=== PATIENT | male | born 2000 | race Caucasian/White ===

== ENCOUNTER 2022-03-30 10:12 | Outpatient (REF) | payer OTHER, SELFPAY ==
[2022-03-30 11:00] LABS: COVID-19 Test Negative (Negative); IDNOW Serial# 16C4AD1C
== END 2022-03-30 10:13 | disposition home or self-care (01) ==
LOC: HO.LAB 10:12
PROVIDERS: Absent Provider Internal Medicine; Visit Provider Internal Medicine
DX: Z20.822 Contact with and (suspected) exposure to COVID-19 (principal)
CPT/HCPCS: 87635

== ENCOUNTER 2023-06-11 07:27 | Emergency (ER) | payer OTHER, SELFPAY ==
--- NOTE | ~2023-06-11 | XR_ITS ---
EXAMINATION: XR CHEST CLINICAL INFORMATION: Stabbing chest pain COMPARISON: None available. TECHNIQUE: Frontal view of the chest was obtained. FINDINGS: No significant abnormality is noted involving the heart, lungs, mediastinum, bony thorax or soft tissues. XR/XR chest 1V IMPRESSION: Unremarkable examination.
[2023-06-11 07:31] VITALS: BP 137/71; PULSE 97; RESP 20; TEMP 36.1; O2SAT 97; BMI 26.9
--- NOTE | 2023-06-11 07:42 | PC.NURSE ---
Patient reports not feeling good starting on friday evening. States has body aches, headache, cough, and chest pain from coughing. Reports took a home covid test that he believes is positive. Reports nasal congestion and sore throat.
[2023-06-11 07:53] VITALS: O2SAT 97
--- NOTE | 2023-06-11 07:57 | ED.URI ---
HPI - URI/Sore Throat General Chief Complaint: Upper Respiratory Symptoms Stated Complaint: Congestion, chest pain Time Seen by Provider: 06/11/23 07:35 History of Present Illness HPI Narrative: Patient is a 22-year-old male presents today with having coughing congestion upper respiratory symptoms. Positive generalized malaise. Cough nonproductive. Patient vaccinated for COVID. Related Data Allergies Allergy/AdvReac Type Severity Reaction Status Date / Time No Known Allergies Allergy Verified 06/11/23 07:35 Review of Systems Review of Systems: Positive coughing congestion upper respiratory symptoms PMFSH Past Medical History Attestation statement: The following information was validated with the patient. Social History Social History Advance Directives: No Advance Directives Information Provided: No Physical Exam Vital Signs: Vital Signs: Last Vital Signs Temp 97.0 F 06/11/23 07:31 Pulse 97 06/11/23 07:31 Resp 20 06/11/23 07:31 BP 137/71 06/11/23 07:31 Pulse Ox 97 06/11/23 07:53 O2 Del Method Room Air 06/11/23 07:53 BMI result Body Mass Index 26.9 Appearance: Alert. Oriented X3. No acute distress. Eyes: Pupils equal, round and reactive to light. ENT: Pharynx normal. Neck: Normal inspection. Neck supple. No lymph nodes noted. No crepitus CVS: Normal heart rate and rhythm. Pulses normal. Normal S1 and S2 Respiratory: No respiratory distress. Breath sounds normal. No Wheezing. No rales Abdomen: Soft and nontender. No rigidity. No distention. good BS x4 Skin: Skin warm and dry. Normal skin color. Normal skin turgor. Extremities: No lower extremity edema. Neurovascular intact to all extremities. No Lacerations. No Rash Neuro: Oriented X 3. No motor deficit. No sensory deficit. Moving all extermities. No slurred speech Medical Decision Making Medical Decision Making MDM Narrative: Well-appearing O2 sat is normal at 98% on room air. Lungs are clear patient in no respiratory distress. He is already vaccinated for COVID. Awaiting viral test results. In stable condition. Patient's RSV come back positive. Given patient's O2 sat is normal no distress. Will have patient follow-up on an outpatient basis. Symptomatic support only. In stable condition. Differential Diagnosis Differential Diagnoses: The differential diagnosis associated with the presentation includes Upper respiratory infection, pneumonia Admission/Observation Consideration of admission/observation: Escalation of care including admission/observation considered No need for admission as patient's O2 sats normal lungs are clear of well. Lab Data Labs: Lab Results 06/11/23 Range/Units 07:41 Influenza Type A (PCR) NEGATIVE (Negative) Influenza Type B (PCR) NEGATIVE (Negative) RSV RNA Qual (PCR) POSITIVE A (Negative) SARS-CoV-2 RNA (RT-PCR) NEGATIVE (Negative) Independent Interpretation I performed an independent interpretation of an: Plain X-Ray Interpretation: X-ray grossly negative Radiology Impression Discussion of test interpretation with radiology: I have reviewed the radiologist's reading. Prescription Management I considered prescription management with: Antibiotic No need for antibiotics Discharge Plan Discharge Clinical Impression: Bronchiolitis Patient Disposition: Home, Self-Care Instructions: Respiratory Syncytial Virus (ED) Referrals: Marisol Graf [Primary Care Provider] - 06/13/23
[2023-06-11 08:23] LABS: Influenza A PCR NEGATIVE (Negative); Influenza B PCR NEGATIVE (Negative); Resp Syncy Virus RNA Qual PCR POSITIVE (Negative); SARS COV2 PCR INHOUSE NEGATIVE (Negative)
== END 2023-06-11 09:27 | disposition home or self-care (01) ==
PROVIDERS: Emergency Provider Emergency Medicine Emergency Medical Services
DX: J21.9 Acute bronchiolitis, unspecified (principal); R50.9 Fever, unspecified; R07.89 Other chest pain; Z20.822 Contact with and (suspected) exposure to COVID-19; Z20.828 Contact with and (suspected) exposure to other viral communicable diseases
CPT/HCPCS: 0241U; 71045; 99283; 99284

== ENCOUNTER 2023-06-12 07:49 | Outpatient (AMB) | payer OTHER, SELFPAY ==
[2023-06-12 08:01] VITALS: BP 128/76; PULSE 71; O2SAT 98; BMI 26.9
--- NOTE | 2023-06-12 08:01 | A.OFFPC_ITS ---
Vital Signs 06/12/23 08:01 Height 6 ft Weight 198 lb BMI 26.9 BP 128/76 Blood Pressure Location Lt brachial Position Sitting Pulse 71 Pulse Source Pulse Oximeter Pulse Oximetry (%) 98 Oxygen Delivery Method Room Air Intake Visit Reasons: NPV/phy Allergies amoxicillin Allergy (Severe, Verified 06/12/23 08:13) Hives Penicillins Allergy (Severe, Verified 06/12/23 08:13) Hives Medication List - Last Reconciled 06/12/23 by KALIN Pettit No Known Home Meds Tobacco use date assessed: 06/12/23 Dental Screening Dental Screen Date: 06/12/23 Did you have a dental visit in the last 12 months?: Yes Did you have a dental problem in the last 6 months where you did not have access to dental care?: No Was dental information given to patient?: Patient has dentist HPI HPI Comments History of Present Illness Details 22-year-old male new patient presents to [facility] for physical exam. Past medical history significant for anxiety, depression. Review of the notes, patient was seen at [facility] yesterday as he has been experiencing cough and had stabbing chast pain related to this, sought care for CXR. CXR unremarkable. Patient was found to be + for RSV. Patient denies CP,sob. Previous patient of [facility] primary care. Eye exam: Recommended Dentist: Follows regularly. Flu declined, Patient states he will verify when his last TDAP was. [facility] Medical History (Updated 06/12/23 @ 08:14 by KALIN Pettit) Anxiety and depression Family History (Updated 06/12/23 @ 08:17 by KALIN Pettit) Mother Skin cancer Father Obstructive sleep apnea Hypertension Maternal Grandfather Myocardial infarction Social History (Updated 06/12/23 @ 08:18 by KALIN Pettit) Housing: House Alcohol intake: current Alcohol intake frequency: a few times a month Patient Tobacco Use Status: Former Tobacco user Tobacco use type: Cigarette e-Cigarette/Vaping Use: Former Use Date or number of years quit: February 2023 Second Hand Smoke Exposure: Yes Substance Use Type: Marijuana Current occupational status: employed Cognitive needs: No Hearing needs: No Vision needs: No Questionnaire PHQ-9 Over the last 2 weeks, how often have you been bothered by any of the following problems? 1. Little interest or pleasure in doing things: not at all 2. Feeling down, depressed, or hopeless: not at all 3. Trouble falling or staying asleep, or sleeping too much: not at all 4. Feeling tired or having little energy: not at all 5. Poor appetite or overeating: not at all 6. Feeling bad about yourself - or that you are a failure or have let yourself or your family down: not at all 7. Trouble concentrating on things, such as reading the newspaper or watching television: not at all 8. Moving or speaking so slowly that other people could have noticed. Or the opposite - being so fidgety or restless that you have been moving around a lot more than usual: not at all 9. Thoughts that you would be better off or of hurting yourself in some way: not at all Total score: 0 Depression Screening Interpretation: Negative Depression Screening Done: Yes [id number] - PHQ-9 Billing: Yes Source: Developed by Drs. Be Siddiqui, Skylar Robbins, Masoud Purvis and colleagues, with an educational cata from [employer]. Thrive Questionnaire Date Thrive assessed: 06/12/23 I am a: Patient What is your living situation today?: I have a steady place to live Within the past 12 months, did the food you bought not last and you didn't have the money to get more?: Never true Within the past 12 months, did you worry whether your food would run out before you got money to buy more?: Never true Do you have trouble paying for medicines?: No Do you have trouble getting transportation to medical appointments?: No Do you have trouble paying your heating and electricity bill?: No Do you have trouble taking care of your child, family member or friend?: No Do you have trouble with day-to-day activities such as bathing, preparing meals, shopping, managing finances, etc.?: No Are you currently unemployed and looking for a job?: No Are you interested in more education?: No Currently or been in a relationship where the following occur: no concerns reported AUDIT C Alcohol Use Questionnaire (AUDIT-C) 1. How often do you have a drink containing alcohol?: 2-4 times a month 2. How many drinks containing alcohol do you have on a typical day when you are drinking?: 3 or 4 3. How often do you have six or more drinks on one occasion?: Never Total Score: 3 JUAN-7 AMB Questionnaire JUAN-7 Date JUAN - 7 assessed: 06/12/23 Feeling nervous, anxious, or on edge: 0 = Not at all Not being able to stop or control worryin = Not at all Worrying too much about different things: 0 = Not at all Trouble relaxin = Not at all Being so restless that it is hard to sit still: 0 = Not at all Becoming easily annoyed or irritable: 0 = Not at all Feeling afraid as if something awful might happen: 0 = Not at all Total JUAN-7 score (0-4 normal; 5-9 mild; 10-14 moderate; 15-21 severe): 0 Source: Developed by Drs. Be Siddiqui, Skylar Robbins, Masoud Purvis and colleagues, with an educational cata from [employer]. JUAN-7 Assessment Billing JUAN-7 Assessment Tool: JUAN-7 Assessment 41673 Review of Systems Const Denies chills, Denies fatigue, Denies fever(s) and Denies poor appetite Eyes Denies no additional complaints ENT Reports Normal hearing present Card Denies chest pain, Denies syncope, Denies rapid heart rate and Denies dyspnea Resp Denies cough and Denies dyspnea GI Denies change in stool character, Denies constipation, Denies diarrhea, Denies nausea and Denies vomiting Denies dysuria, Denies urinary frequency and Denies urinary urgency Neuro Reports Normal hearing present, Denies confusion and Denies syncope Psych Denies confusion Endo Denies fatigue Physical exam (Primary Care) Vital Signs: Last Vital Signs Pulse 71 06/12/23 08:01 BP 128/76 06/12/23 08:01 Pulse Ox 98 06/12/23 08:01 Oxygen Delivery Method Room Air 06/12/23 08:01 BMI result Body Mass Index 26.9 Tobacco/Smoking Status: Tobacco use Status Tobacco use date assessed 06/12/23 06/12/23 08:09 Patient Tobacco Use Status Former Tobacco user 06/12/23 08:18 Tobacco use type Cigarette 06/12/23 08:18 e-Cigarette/Vaping Use Former Use 11/16/23 08:18 PHQ-9: PHQ-9 Score PHQ-9: Total score 0 06/12/23 08:37 Depression Screening Interpretation: Negative Thrive Assessment: Date of Thrive Assessment Date Thrive assessed 06/12/23 06/12/23 08:09 Currently or been in a relationship where the following occur: no concerns reported Const General: No confusion Orientation/consciousness: No confusion HENMT Head: Yes normocephalic and Yes atraumatic Ears: external ears normal and TM's normal bilaterally General nose exam: Normal external nose present and Normal nasal mucous membranes and turbinates present Face and sinus: Yes normal facial exam and Yes sinuses nontender Mouth: moist mucous membranes Throat: Yes tonsils normal Eyes Conjunctivae: conjunctivae normal Sclerae: sclerae normal Pupils: Equal, round and reactive pupils present and Pupils normal by confrontation EOM: EOMs intact bilaterally Direct Ophthalmoscopy: normal light reflex Neck Neck: Yes no lymphadenopathy and Yes supple Thyroid: Thyroid normal Chest Chest palpation & inspection: normal inspection of the chest Resp Effort & Inspection: normal respiratory effort Auscultation: clear to auscultation bilaterally, no crackles, no rhonchi and no wheezes Cardio Rate: regular rate Rhythm: regular rhythm Peripheral pulses: radial pulses present and dorsalis pedis present GI Inspection: Yes normal to inspection Palpation (GI): Soft to palpation, nontender and No hepatosplenomegaly present Auscultation: normoactive bowel sounds Skin General skin exam: no rashes or lesions noted Neuro General: No confusion Cranial nerves: Yes Equal, round and reactive pupils present and Yes Normal hearing present Cognition (Neuro): normal cognition Gait exam (Neuro): Normal gait present Motor exam (neuro): 5/5 motor strength present throughout Deep tendon reflexes (DTR's): Right brachioradialis reflex intensity grade: 2+, Left brachioradialis reflex intensity grade: 2+, Right patellar reflex intensity grade: 2+ and Left patellar reflex intensity grade: 2+ Extrem General: No edema Assessment and Plan Assessment & Plan (1) Physical exam, annual: Code(s): Z00.00 - Encounter for general adult medical examination without abnormal findings Plan: Follow up in 1 year. (2) RSV infection: Code(s): B33.8 - Other specified viral diseases Plan: Patient advise can take OTC medicine as needed for cough. Signs and symptoms reviewed with patient when to follow up or seek emergency medical attention. Patient states was given work note from ER and is off until next week. Plan Follow up in 1 year or sooner if needed. Orders: Orders Comprehensive [place]. Panel Fast Today Z13.1 - Encounter for screening for diabetes mellitus Complete Blood Count Auto Diff Today Z13.0 - Encounter for screening for diseases of the blood and blood-forming organs and certain disorders involving the immune mechanism TSH reflex Free T4 Today Z13.29 - Encounter for screening for other suspected endocrine disorder Lipid Panel Today Z13.220 - Encounter for screening for lipoid disorders Coding Level of Care Code New Pt Prev Care 18-39yr([id number] Diagnoses Physical exam, annual Z00.00 RSV infection B33.8 Additional Codes JUAN-7 Assessment Billing - JUAN-7 Assessment Tool: JUAN-7 Assessment 54154 ([id number])
== END 2023-06-12 08:32 | disposition home or self-care (01) ==
PROVIDERS: Visit Provider Nurse Practitioner Family
DX: Z00.00 Encounter for general adult medical examination without abnormal findings (principal); B33.8 Other specified viral diseases
CPT/HCPCS: 99385

== ENCOUNTER 2023-07-24 08:52 | Outpatient (REF) | payer OTHER, SELFPAY ==
[2023-07-24 09:47] LABS: Influenza A PCR POSITIVE (Negative); Influenza B PCR NEGATIVE (Negative); Resp Syncy Virus RNA Qual PCR NEGATIVE (Negative); SARS COV2 PCR INHOUSE NEGATIVE (Negative)
== END 2023-07-24 08:53 | disposition home or self-care (01) ==
LOC: HO.LAB 08:52
PROVIDERS: Visit Provider Physician Assistant
DX: Z11.52 Encounter for screening for COVID-19 (principal); Z20.822 Contact with and (suspected) exposure to COVID-19; B34.9 Viral infection, unspecified
CPT/HCPCS: 0241U

== ENCOUNTER 2023-10-02 07:26 | Observation (INO) | payer OTHER, SELFPAY ==
[2023-10-02] VITALS (13 sets, daily range): BP systolic 101–132; BP diastolic 48–80; PULSE 100–161; RESP 15–25; TEMP 36.8–37.1; O2SAT 90–97; BMI 26.9
--- NOTE | ~2023-10-02 | XR_ITS ---
EXAMINATION: XR CHEST CLINICAL INFORMATION: SOB (shortness of breath) COMPARISON: Chest 06/11/2023 TECHNIQUE: 2 views of the chest were obtained. 8:51 AM FINDINGS: No significant abnormality is noted involving the heart, lungs, mediastinum, bony thorax or soft tissues. XR/XR chest 2V IMPRESSION: No acute cardiopulmonary disease.
--- NOTE | ~2023-10-02 | CT_ITS ---
EXAMINATION: CT CHEST WITHOUT CONTRAST CLINICAL INFORMATION: Shortness of breath. COMPARISON: None available. TECHNIQUE: Multidetector volumetric CT imaging of the chest was done. Axial MIP volume rendering provided. Sagittal and coronal reformatted images were obtained. This CT examination was performed using dose optimization techniques as appropriate, variously including the following: *Automated exposure control *Adjustment of mA and/or kV according to patient size (this includes techniques or standardized protocols for targeted exams where dose is matched to indication/reason for exam; i.e. extremities or head) *Use of iterative reconstruction technique DLP: 309 mGy-cm FINDINGS: LUNGS: 4 mm nodule left lower lobe on image 423 of series 5. No focal consolidation. Central airways are patent. MEDIASTINUM: No bulky axillary, hilar or mediastinal lymphadenopathy. Great vessels are of normal caliber. Heart size is normal. No pericardial effusion. CORONARY ARTERY CALCIFICATION: None visualized on this study. PLEURA: No pleural effusion. UPPER ABDOMEN: Hepatic steatosis. No adrenal mass. OSSEOUS STRUCTURES: No destructive bone lesions. CT/CT chest wo IV con IMPRESSION: 4 mm left lower lobe pulmonary nodule. Follow-up chest CT in 12 months may be considered. Hepatic steatosis.
--- NOTE | 2023-10-02 07:28 | ECG_ITS ---
Test Reason : CP Blood Pressure : / mmHG Vent. Rate : 098 BPM Atrial Rate : 098 BPM P-R Int : 124 ms QRS Dur : 078 ms QT Int : 338 ms P-R-T Axes : 062 069 059 degrees QTc Int : 431 ms Normal sinus rhythm Normal ECG No previous ECGs available Referred By: Generic ED Physician Electronically Signed By:Edwin Hodges
--- NOTE | 2023-10-02 07:44 | ED_ITS ---
HPI - General Adult General Chief complaint: Upper Respiratory Symptoms Stated complaint: chest pain Time Seen by Provider: 10/02/23 07:44 Source: patient Mode of arrival: ambulatory Limitations: no limitations History of Present Illness HPI narrative: 22-year-old male presents to the emergency department with complaints of shortness of breath, cough, chest pain, hot flashes ongoing since Friday however rapidly worsening today. Patient reports he is unable to take a deep breath. He tells me on Friday he had 1 episode of nausea and vomiting however that has gone away. Patient reports his chest discomfort is in the substernal region and radiates to his right upper extremity and into the shoulder. He tells me that his shortness of breath is so severe he is unable to take a deep breath in. Patient does not smoke cigarettes. He does however vape. Patient denies fevers, chills, nausea, vomiting, abdominal pain, changes in urination. No history of PE or DVT. No recent long travel. No history of malignancy. Related Data Home Medications Medication Instructions Recorded Confirmed No Known Home Meds 06/12/23 06/12/23 Allergies Allergy/AdvReac Type Severity Reaction Status Date / Time amoxicillin Allergy Severe Hives Verified 06/12/23 08:13 Penicillins Allergy Severe Hives Verified 06/12/23 08:13 Review of Systems 2 Review of Systems: Yes all other systems are reviewed and are negative PMFSH Past Medical History Attestation statement: The following information was validated with the patient. Source: old records reviewed and nursing notes reviewed Medical History Anxiety and depression Family History Family History Mother Skin cancer Father Obstructive sleep apnea Hypertension Maternal Grandfather Myocardial infarction Social History Social History Housing: House Alcohol intake: current Alcohol intake frequency: holidays/special occasions only Patient Tobacco Use Status: Former Tobacco user Tobacco use type: Cigarette Smoked in Last 30 Days: Yes e-Cigarette/Vaping Use: Former Use Date or number of years quit: February 2023 Second Hand Smoke Exposure: Yes Use of substances other than those prescribed or required for medical reasons: Yes Substance Use Type: Marijuana Advance Directives: No Current occupational status: employed Cognitive needs: No Hearing needs: No Vision needs: No Physical Exam ED Vital Signs: Vital Signs - 24 hr 10/02/23 07:37 10/02/23 08:01 10/02/23 08:04 Temperature 98.8 F 98.6 F Pulse Rate 105 H 104 H 105 H Respiratory Rate 24 H 16 25 H Blood Pressure 127/70 129/80 Pulse Oximetry 92 93 Oxygen Delivery Method Room Air Room Air 10/02/23 08:09 10/02/23 08:36 10/02/23 09:15 Temperature Pulse Rate 116 H Respiratory Rate 15 Blood Pressure Pulse Oximetry 90 L 93 Oxygen Delivery Method Room Air Room Air 10/02/23 09:27 10/02/23 09:53 10/02/23 12:15 Temperature 98.8 F Pulse Rate 160 H 161 H 119 H Respiratory Rate 16 16 18 Blood Pressure 127/68 119/62 Pulse Oximetry 94 94 97 Oxygen Delivery Method Room Air Room Air Room Air BMI result Body Mass Index 26.9 vss Appearance: Alert.? Oriented X3.? No acute distress.? Head: Normocephalic, atraumatic, no step-offs or deformities Eyes: Pupils equal, round and reactive to light.? Neck: Normal inspection.? Neck supple.? CVS: Normal heart rate and rhythm.? Pulses normal.? Respiratory: No respiratory distress.? With significant wheezing throughout on expiration. Abdomen: Soft and nontender.? Skin: Skin warm and dry.? Normal skin color.? Normal skin turgor.? Extremities: No lower extremity edema.? No calf ttp. 5/5 strength to bilateral upper and lower extremities Neuro: Oriented X 3.? No motor deficit.? No sensory deficit. CN 2-12 intact Course Reevaluation(s) Reevaluation #1: Patient 90% w/ ambulation w/ evident labored breathing. Time: 08:00 Reevaluation #2: CBC with leukocytosis 11.4. Likely secondary to viral illness. Chemistry no acute findings needing intervention. Bili 1.8 likely baseline vs viral. Trop negative, ekg non ischemic. Dimer negative. Patient + for entero/rhino virus consistent with patient's symptoms. CXR no acute findings. Chest CT pending. Breathsounds improved however still wheezing 92% on RA still. Time: 12:43 Reevaluation #3: Patient's heart rate 130s to 140. Plan at this time hospital admission. Time: 13:16 Medications Administered Discontinued Medications Generic Name Dose Route Start Last Admin Trade Name Shine PRN Reason Stop Dose Admin Albuterol Sulfate 5 mg/ 7.5 mg 10/02/23 09:05 10/02/23 09:14 Albuterol Sulfate 2.5 mg INHALE 10/02/23 09:06 7.5 mg ONCE ONE Administration Albuterol Sulfate 7.5 mg/ 0 mg 10/02/23 07:56 10/02/23 08:02 Albuterol/Ipratropium 3 ml INHALE 10/02/23 07:57 2.5 each ONCE ONE Administration Magnesium Sulfate 2 gm in 50 mls @ 25 mls/hr 10/02/23 07:47 10/02/23 10:00 Magnesium Sulfate/H2o IV 10/02/23 09:46 Infused ONCE ONE Infusion Lorazepam 0.5 mg 10/02/23 09:43 10/02/23 09:51 Lorazepam 2 Mg/Ml Vial IVPUSH 10/02/23 09:44 0.5 mg STAT STA Administration Methylprednisolone Sodium Succinate 125 mg 10/02/23 07:47 10/02/23 07:58 Methylprednisolone Sod Succ 125 Mg/2 Ml Vial IVPUSH 10/02/23 07:48 125 mg ONCE ONE Administration Medical Decision Making Medical Decision Making [facility] Narrative: 22-year-old male presents with shortness of breath, chest discomfort fatigue, malaise and cough. Physical exam significant expiratory wheezing bilaterally. History and physical exam concerning for possible viral illness versus asthma. Unlikely pneumonia, PE, ACS, dissection. No signs of acute respiratory distress at this time. Plan will obtain basic labs, imaging, viral testing. Bronch protocol initiated. Will give magnesium and Solu-Medrol. Differential Diagnosis Differential Diagnoses: The differential diagnosis associated with the presentation includes History and physical exam concerning for possible viral illness versus asthma. Unlikely pneumonia, PE, ACS, dissection. No signs of acute respiratory distress at this time. Admission/Observation Consideration of admission/observation: Escalation of care including admission/observation considered possible Lab Data [facility] Lab Attestation statement: I reviewed the patient's lab results. 10/02/23 07:59 10/02/23 07:59 Labs: Lab Results 10/02/23 10/02/23 10/02/23 Range/Units 07:42 07:59 08:22 WBC 11.4 H (4.8-10.8) X10*3/uL RBC 5.31 (4.60-5.80) X10*6/uL Hgb 16.2 (14.0-18.0) g/dl Hct 44.4 (42.0-52.0) % MCV 83.6 (80.0-98.0) fL MCH 30.5 (27.0-33.0) pg MCHC 36.5 H (31.0-36.0) g/dl RDW 11.6 (11.0-16.0) % Plt Count 204 (160-400) X10*3/uL MPV 10.1 (9.4-12.4) fL Immature Gran % (Auto) 0.4 (0.0-0.4) % Neut % (Auto) 71.1 (45-73) % Lymph % (Auto) 13.5 L (20-40) % Cole % (Auto) 10.9 (2-11) % Eos % (Auto) 3.8 (0-4) % Baso % (Auto) 0.3 (0-2) % Lymph # (Auto) 1.5 (1.2-4.9) X10*3/uL Cole # (Auto) 1.2 (0.1-1.2) X10*3/uL Eos # (Auto) 0.4 (0.0-0.4) X10*3/uL Baso # (Auto) 0.0 (0.0-0.2) X10*3/uL Abs Immat Gran (auto) 0.04 H (0.00-0.03) X10*3/uL Absolute Neuts (auto) 8.1 (2.0-8.3) x10*3/uL Absolute Nucleated RBC 0.000 (0.0-0.012) X10*3/uL Nucleated RBC % (auto) 0.0 (0.0-0.2) /100WBC PT 12.2 (11.1-13.3) SEC INR 1.0 (0.9-1.1) D-Dimer High Sensitivty < 150 NG/ML Sodium 141 (135-145) mmol/L Potassium 3.4 (3.3-5.1) mmol/L Chloride 106 (96-108) mmol/L Carbon Dioxide 25 (22-29) mmol/L Anion Gap 13 (12-20) BUN 13 (9-16) mg/dL Creatinine 0.91 (0.5-1.4) mg/dL Estim Creat Clear Calc 139.7 Estimated GFR > 60 Random Glucose 101 (60-115) mg/dL Calcium 9.5 (8.4-10.2) mg/dL Magnesium 1.9 (1.6-2.6) mg/dL Total Bilirubin 1.8 H (0.0-1.0) mg/dL AST 25 (5-37) U/L ALT 46 H (0-40) U/L Alkaline Phosphatase 57 (39-117) U/L Troponin I High Sens < 2.7 (<3.5-35.0) ng/L Total Protein 7.6 (6.5-8.0) g/dL Albumin 4.6 (3.5-5.0) g/dL Respiratory Panel [place] See Note Adenovirus (Rapid PCR) Not Detected (Not Detect.) B.pert (TEM-PCR) Not Detected (Not Detect.) B.parapertussis DNA PCR Not Detected (Not Detect.) C. pneumoniae DNA (PCR) Not Detected (Not Detect.) Coronavirus OC43 (PCR) Not Detected (Not Detect.) Coronavirus HKU1 (PCR) Not Detected (Not Detect.) Coronavirus 229E (PCR) Not Detected (Not Detect.) Coronavirus NL63 (PCR) Not Detected (Not Detect.) Human Metapneumovir PCR Not Detected (Not Detect.) Influenza A (RT-PCR) Not Detected (Not Detect.) Influenza Type A (PCR) NEGATIVE (Negative) Influenza B (RT-PCR) Not Detected (Not Detect.) Influenza Type B (PCR) NEGATIVE (Negative) M. pneumoniae (PCR) Not Detected (Not Detect.) Parainfluenza 1 (PCR) Not Detected (Not Detect.) Parainfluenza 2 (PCR) Not Detected (Not Detect.) Parainfluenza 3 (PCR) Not Detected (Not Detect.) Parainfluenza 4 (PCR) Not Detected (Not Detect.) RSV (PCR) Not Detected (Not Detect.) RSV RNA Qual (PCR) NEGATIVE (Negative) Entero/Rhino (PCR) Detected A (Not Detect.) SARS-CoV-2 RNA (RT-PCR) NEGATIVE Not Detected (Negative) Independent Interpretation I performed an independent interpretation of an: EKG and Plain X-Ray Critical Care Time Critical Care Time Critical Care Time: Yes Total Critical Care Time: 45 Attestation: I attest to this time spent taking care of the patient, obtaining history, physical, reviewing labs, imaging, Discharge Plan Discharge Clinical Impression: Infection, enterovirus, Hypoxia, Wheezing Patient Disposition: Admitted As Inpatient Instructions: Hypoxia (ED), Wheezing (ED) Additional Instructions: Take your medications as prescribed. If you were prescribed antibiotics today, it is important that you take your medication to their entirety, do not skip any doses, do not finish them early. Follow-up with your primary care provider this week. Return to the emergency department with new or worsening symptoms. Such as fevers, chills, chest pain, shortness of breath, nausea, vomiting, dizziness, headache, vision changes, lethargy In case of emergency call 911 CT/CT chest wo IV con IMPRESSION: 4 mm left lower lobe pulmonary nodule. Follow-up chest CT in 12 months may be considered. Hepatic steatosis. Prescriptions: No Action No Known Home Meds Referrals: Physician,Unknown J [Primary Care Provider] - 2 days
[2023-10-02] MEDS: methylPREDNISolone Sod Succ 125 MG/2 ML VIAL IVPUSH (07:58)
[2023-10-02] MEDS: Magnesium Sulfate/H2O 2 GM/50 ML PIGGYBACK IV (07:59)
--- NOTE | 2023-10-02 08:01 | PC.NURSE ---
a&ox4. vss and up to date aside from being sinus tachy on the property assessment monitor. pt presents to the ED w/ upper respiratory sx x a few days. pt audibly wheezing upon ED arrival. denies hx of asthma/COPD but states that he is a daily smoker. inspiratory/expiratory wheezing noted throughout upon auscultation. slight sob/wob noted at rest. respirations even and unlabored. pt able to speak in full/clear sentences w/o difficulty. dry cough noted. 20gIV placed in the right AC - labs obtained/sent to lab. pt seen by ED provider. plan of care ongoing. call abdi placed within reach.
[2023-10-02] MEDS: Albuterol Sulfate 7.5 MG, Albuterol/Iprat 2.5/0.5MG 3 ML 3 ML INHALE (08:02)
[2023-10-02 08:08] LABS: MANUAL DIFF FLAG NO
[2023-10-02 08:13] LABS: Basophils Percent Auto 0.3 % (0-2); Eosinophils Absolute Auto 0.4 X10*3/uL (0.0-0.4); Eosinophils Percent Auto 3.8 % (0-4); Hematocrit 44.4 % (42.0-52.0); Hemoglobin 16.2 g/dl (14.0-18.0); Imm Gran Abs Auto 0.04 X10*3/uL (0.00-0.03); Imm Gran Pct Auto 0.4 % (0.0-0.4); Lymphocytes Absolute Auto 1.5 X10*3/uL (1.2-4.9); Lymphocytes Percent Auto 13.5 % (20-40); Mean Corpuscular HGB Conc 36.5 g/dl (31.0-36.0); Mean Corpuscular Hemoglobin 30.5 pg (27.0-33.0); Mean Corpuscular Volume 83.6 fL (80.0-98.0); Mean Platelet Volume 10.1 fL (9.4-12.4); Monocytes Absolute Auto 1.2 X10*3/uL (0.1-1.2); Monocytes Percent Auto 10.9 % (2-11); Neutrophils Absolute Auto 8.1 x10*3/uL (2.0-8.3); Neutrophils Percent Auto 71.1 % (45-73); Platelet Count 204 X10*3/uL (160-400); Red Blood Count 5.31 X10*6/uL (4.60-5.80); Red Cell Distribution Width 11.6 % (11.0-16.0); White Blood Count 11.4 X10*3/uL (4.8-10.8)
--- NOTE | 2023-10-02 08:15 | PC.NURSE ---
pt performed an ambulatory O2 assessment. pt ambulated around the ED w/ a strong/steady gait independently where O2 sats dropped to as low as 90% on RA. pt verbalizes feeling sob while ambulating. medication administered per provider order. pt receiving duoneb via RT at this time. effectiveness pending.
[2023-10-02 08:20] LABS: Prothrombin Time 12.2 SEC (11.1-13.3)
[2023-10-02 08:26] LABS: Alanine Aminotransferase 46 U/L (0-40); Albumin Level 4.6 g/dL (3.5-5.0); Alkaline Phosphatase 57 U/L (39-117); Anion Gap 13 (12-20); Aspartate Amino Transferase 25 U/L (5-37); Bilirubin Total 1.8 mg/dL (0.0-1.0); Blood Urea Nitrogen 13 mg/dL (9-16); Calcium 9.5 mg/dL (8.4-10.2); Carbon Dioxide 25 mmol/L (22-29); Chloride 106 mmol/L (96-108); Creatinine Clr Calc Pharmacy 139.7; Estimated Glomerular Filt Rate > 60; Glucose Random 101 mg/dL (60-115); Magnesium 1.9 mg/dL (1.6-2.6); Potassium 3.4 mmol/L (3.3-5.1); Sodium 141 mmol/L (135-145); Total Protein 7.6 g/dL (6.5-8.0)
[2023-10-02 08:29] LABS: D Dimer High Sensitivity < 150 NG/ML
[2023-10-02 08:36] LABS: Troponin-I High Sensitivity < 2.7 ng/L (<3.5-35.0)
[2023-10-02 08:37] LABS: Influenza A PCR NEGATIVE (Negative); Influenza B PCR NEGATIVE (Negative); Resp Syncy Virus RNA Qual PCR NEGATIVE (Negative); SARS COV2 PCR INHOUSE NEGATIVE (Negative)
--- NOTE | 2023-10-02 08:50 | PC.NURSE ---
audible wheezing subsided post duoneb administration. lung sounds CTA upon auscultation. pt verbalizes feeling sob decreased post medication administration. pt remains sinus tachy on the air sampling and monitoring. 95% on RA. no sob/wob noticed when conversating w/ pt. pt waiting to go to xray at this time. plan of care ongoing.
--- NOTE | 2023-10-02 09:06 | PC.NURSE ---
pt returned from xray/receiving 2nd breathing treatment via RT at this time.
[2023-10-02] MEDS: Albuterol Sulfate 5 MG, Albuterol Sulfate (0.083%) 2.5 MG 7.5 MG INHALE (09:14)
[2023-10-02] MEDS: LORazepam 2 MG/ML VIAL 0.5 MG IVPUSH (09:51)
--- NOTE | 2023-10-02 10:13 | PC.NURSE ---
pt sinus tachy at 160sbpm on the the case monitor. pt also verbalizes feeling extremely anxious. pt medicated per provider order. effectiveness pending. pt waiting to go to CT at this time.
[2023-10-02 11:01] LABS: Adenovirus PCR Not Detected (Not Detect.); Bordetella parapertussis PCR Not Detected (Not Detect.); Bordetella pertussis PCR Not Detected (Not Detect.); Chlamydia pneumoniae PCR Not Detected (Not Detect.); Coronavirus 229E PCR Not Detected (Not Detect.); Coronavirus HKU1 PCR Not Detected (Not Detect.); Coronavirus NL63 PCR Not Detected (Not Detect.); Coronavirus OC43 PCR Not Detected (Not Detect.); Human metapneumovirus PCR Not Detected (Not Detect.); Influenza A PCR Not Detected (Not Detect.); Influenza B PCR Not Detected (Not Detect.); Mycoplasma pneumoniae PCR Not Detected (Not Detect.); Parainfluenza 1 PCR Not Detected (Not Detect.); Parainfluenza 2 PCR Not Detected (Not Detect.); Parainfluenza 3 PCR Not Detected (Not Detect.); Parainfluenza 4 PCR Not Detected (Not Detect.); RSV PCR Not Detected (Not Detect.); Rhino/Enterovirus PCR Detected (Not Detect.); SARS-CoV-2 PCR Not Detected (Not Detect.)
[2023-10-02] MEDS: levalbuterol HCL 2.5 MG, Ipratropium Bromide 0.5 MG INHALE (13:26)
--- NOTE | 2023-10-02 14:42 | PHA.MEDREC ---
Pharmacy Consult ? Medication Reconciliation Pharmacy has completed the medication reconciliation. Spoke to patient, he is not on any medications.
--- NOTE | 2023-10-02 15:34 | P.HPHOSP_ITS ---
History of Present Illness Date of Service: 10/02/23 Attending physician on admission: Moshe Hayward Chief Complaint: shortness of breath, cough This is a 22-year-old male with no significant past medical history who presents to the emergency department with shortness of breath. On Friday patient began having sore throat, this progressed to a productive cough on Friday and then overnight his cough became more persistent. On arrival to the emergency department he was noted to have oxygen saturation of 90% on room air and was wheezing. He received DuoNeb breathing treatment which caused considerable tachycardia. Xopenex was tried in its place but heart rate increased up to 160. Patient also received systemic steroids and IV magnesium but continued to have wheezing. Patient reports frequent respiratory illnesses in childhood but has no diagnosis of asthma. He does vape and smoke marijuana. Respiratory pathogen panel was positive for rhino virus. D-dimer less than 150. Patient had CT scan his chest which showed solitary pulmonary nodule. Due to persistent wheezing and tachycardia the decision was made to keep him overnight for observation. Review of Systems 2 Review of Systems: Yes all other systems are reviewed and are negative Constitutional: Constitutional: Denies chills and Denies fever(s) Cardiovascular: Cardiovascular: Denies chest pain and Denies dyspnea Respiratory: Respiratory: Reports cough and Denies dyspnea Gastrointestinal: Gastrointestinal: Denies abdominal pain [facility] Medical History Anxiety and depression Family History Mother Skin cancer Father Obstructive sleep apnea Hypertension Maternal Grandfather Myocardial infarction Social History Housing: House Alcohol intake: current Alcohol intake frequency: holidays/special occasions only Patient Tobacco Use Status: Former Tobacco user Tobacco use type: Cigarette Smoked in Last 30 Days: Yes e-Cigarette/Vaping Use: Former Use Date or number of years quit: February 2023 Second Hand Smoke Exposure: Yes Use of substances other than those prescribed or required for medical reasons: Yes Substance Use Type: Marijuana Advance Directives: No Current occupational status: employed Cognitive needs: No Hearing needs: No Vision needs: No Meds Allergies Allergy/AdvReac Type Severity Reaction Status Date / Time amoxicillin Allergy Severe Hives Verified 06/12/23 08:13 Penicillins Allergy Severe Hives Verified 06/12/23 08:13 Active Medications: Current Medications Acetaminophen (Acetaminophen 325 Mg Tablet) 650 mg PO Q6H PRN PRN Reason: Pain, Mild (Pain Scale 1-3) Docusate Sodium (Docusate Sodium 100 Mg Capsule) 100 mg PO DAILY PRN PRN Reason: Constipation Guaifenesin (Guaifenesin 200 Mg/10 Ml 10 Ml Liquid) 10 ml PO Q6H BOBBY Methylprednisolone Sodium Succinate (Methylprednisolone Sod Succ 40 Mg/Ml Vial) 40 mg IVPUSH Q12H BOBBY Ondansetron HCl (Ondansetron Hcl 4 Mg/2 Ml Vial) 4 mg IVPUSH Q8H PRN PRN Reason: Nausea and Vomiting Sodium Chloride (0.9 % Sodium Chloride Flush 3 Ml Syringe) 3 ml IVFLUSH QSHIFT [facility] Home Medications Medication Instructions Recorded Confirmed Last Taken Type No Known Home Meds 06/12/23 10/02/23 Unknown History Physical Exam 2 Vital Signs and Narrative: Vital Signs: Last Vital Signs Temp 98.8 F 10/02/23 12:15 Pulse 113 H 10/02/23 13:27 Resp 18 10/02/23 13:27 BP 119/62 10/02/23 12:15 Pulse Ox 97 10/02/23 12:15 O2 Del Method Room Air 10/02/23 12:15 BMI result Body Mass Index 26.9 Const: General: cooperative, comfortable, no acute distress, alert and awake Nutritional Appearance: average body habitus Orientation/consciousness: p atient oriented x3 Resp: Other: bilateral wheezing Effort & Inspection: normal respiratory effort, able to speak in complete sentences, no respiratory distress and no use of accessory muscles Cardio: Rate: tachycardic GI: Inspection: No distended Palpation (GI): Soft to palpation and nontender Neuro: General: patient oriented x3, moves all extremities and CN's II-XI intact bilaterally Extrem: General: Yes no pedal edema Results Labs 10/02/23 07:59 10/02/23 07:59 Labs: Laboratory Results - last 24 hr 10/02/23 10/02/23 10/02/23 07:42 07:59 08:22 MCV 83.6 MCH 30.5 MCHC 36.5 H RDW 11.6 Plt Count 204 MPV 10.1 Immature Gran % (Auto) 0.4 Neut % (Auto) 71.1 Lymph % (Auto) 13.5 L Wagoner % (Auto) 10.9 Eos % (Auto) 3.8 Baso % (Auto) 0.3 Lymph # (Auto) 1.5 Wagoner # (Auto) 1.2 Eos # (Auto) 0.4 Baso # (Auto) 0.0 Abs Immat Gran (auto) 0.04 H Absolute Neuts (auto) 8.1 Absolute Nucleated RBC 0.000 Nucleated RBC % (auto) 0.0 PT 12.2 INR 1.0 D-Dimer High Sensitivty < 150 Anion Gap 13 Estim Creat Clear Calc 139.7 Estimated GFR > 60 Random Glucose 101 Calcium 9.5 Magnesium 1.9 Total Bilirubin 1.8 H AST 25 ALT 46 H Alkaline Phosphatase 57 Troponin I High Sens < 2.7 Total Protein 7.6 Albumin 4.6 Respiratory Panel Rascon See Note Adenovirus (Rapid PCR) Not Detected B.pert (TEM-PCR) Not Detected B.parapertussis DNA PCR Not Detected C. pneumoniae DNA (PCR) Not Detected Coronavirus OC43 (PCR) Not Detected Coronavirus HKU1 (PCR) Not Detected Coronavirus 229E (PCR) Not Detected Coronavirus NL63 (PCR) Not Detected Human Metapneumovir PCR Not Detected Influenza A (RT-PCR) Not Detected Influenza Type A (PCR) NEGATIVE Influenza B (RT-PCR) Not Detected Influenza Type B (PCR) NEGATIVE M. pneumoniae (PCR) Not Detected Parainfluenza 1 (PCR) Not Detected Parainfluenza 2 (PCR) Not Detected Parainfluenza 3 (PCR) Not Detected Parainfluenza 4 (PCR) Not Detected RSV (PCR) Not Detected RSV RNA Qual (PCR) NEGATIVE Entero/Rhino (PCR) Detected A SARS-CoV-2 RNA (RT-PCR) NEGATIVE Not Detected Imaging Radiologist's Impressions: Impressions Chest X-Ray 10/02/23 08:55 IMPRESSION: No acute cardiopulmonary disease. Chest CT 10/02/23 11:57 IMPRESSION: 4 mm left lower lobe pulmonary nodule. Follow-up chest CT in 12 months may be considered. Hepatic steatosis. Assessment and Plan (1) Rhinovirus infection: Status: Acute Plan This is a 22-year-old male with no significant past medical history who presents to the emergency department with shortness of breath found to have rhino virus viral upper respiratory infection due to rhinovirus no sepsis, severe tachycardia due to duonebs and xopenex, will hold off on further breathing treatments for now IV solu-medrol supportive care for cough sinus tachycardia likely secondary to breathing treatments lytes wnl ddimer <150 tele monitoring pulmonary nodule CT chest with 4m LLL nodule, rec follow-up chest CT in 12 months Patient aware of findings hepatic steatosis mild elevation ALT 46 outpatient follow up dvt ppx - low risk, mechanical devices, early ambulation Quality Stroke Does the patient have a stroke diagnosis?: No VTE Prior VTE?: No VTE Risk Level:: Medical - low VTE Device Contraindication: N/A - Device Ordered VTE Drug Contraindication: Treatment Not Indicated
[2023-10-02] MEDS: guaiFENesin 200 MG/10 ML 10 ML LIQUID PO ×2 (16:37→21:45)
[2023-10-02 16:46] LABS: Thyroid Stimulating Hormone 1.14 uIU/mL (0.32-4.0)
[2023-10-02] MEDS: Acetaminophen 325 MG TABLET 650 MG PO (17:00)
[2023-10-02] MEDS: Nicotine 7 MG PATCH.TD24 TRANSDERMA (17:00)
--- NOTE | 2023-10-02 17:25 | PC.NURSE ---
resting quietly in room, hr between 90-100's. medicated per the MAR, patient offering no other complaints at this time. remains alert and oriented no obvious signs/symptoms of distress noted. ambulates independently with strong, steady gait. call abdi within reach.
--- NOTE | 2023-10-02 19:23 | MHC.CM.ED ---
CM met with patient assigned to observation. A&Ox4. Employed. Lives with girlfriend. No services or DME. VENTURA 10/01. D/C plan: home without services.
[2023-10-02] MEDS: methylPREDNISolone Sod Succ 40 MG/ML VIAL IVPUSH (19:41)
[2023-10-02] MEDS: 0.9 % Sodium Chloride Flush 3 ML SYRINGE IVFLUSH (19:41)
[2023-10-02] MEDS: Melatonin 3 MG TABLET 6 MG PO (22:03)
[2023-10-03] MEDS: Calcium Carbonate 750 MG TAB.CHEW PO ×2 (02:48→10:31)
[2023-10-03 03:06] VITALS: BP 121/68; PULSE 94; RESP 18; TEMP 36.5; O2SAT 92
[2023-10-03] MEDS: methylPREDNISolone Sod Succ 40 MG/ML VIAL IVPUSH (07:27)
[2023-10-03] MEDS: 0.9 % Sodium Chloride Flush 3 ML SYRINGE IVFLUSH (07:27)
[2023-10-03] MEDS: Acetaminophen 325 MG TABLET 650 MG PO (08:32)
[2023-10-03] MEDS: guaiFENesin 200 MG/10 ML 10 ML LIQUID PO (10:31)
--- NOTE | 2023-10-03 10:41 | PM.DS ---
DS: Providers Provider Date of Service: 10/03/23 Date of admission: 10/02/23 15:29 Date of discharge: 10/03/23 Primary care physician: Unknown Physician Attending physician on discharge: Moshe Hayward Discharging clinician: Gretel Baxter DS: Diagnosis Discharge Diagnosis (1) Rhinovirus infection: Status: Acute (2) Sinus tachycardia: Status: Acute (3) Pulmonary nodule: Status: Acute DS: Summary Hospital Course Hospital Course: From H&P on the day of admission This is a 22-year-old male with no significant past medical history who presents to the emergency department with shortness of breath. On Friday patient began having sore throat, this progressed to a productive cough on Friday and then overnight his cough became more persistent. On arrival to the emergency department he was noted to have oxygen saturation of 90% on room air and was wheezing. He received DuoNeb breathing treatment which caused considerable tachycardia. Xopenex was tried in its place but heart rate increased up to 160. Patient also received systemic steroids and IV magnesium but continued to have wheezing. Patient reports frequent respiratory illnesses in childhood but has no diagnosis of asthma. He does vape and smoke marijuana. Respiratory pathogen panel was positive for rhino virus. D-dimer less than 150. Patient had CT scan his chest which showed solitary pulmonary nodule. Due to persistent wheezing and tachycardia the decision was made to keep him overnight for observation. Patient was observed overnight. His breathing and wheezing improved significantly, his heart rate has returned to normal. He has had no episodes of hypoxia. He is eager to return home. Be discharged with a short course of steroids and recommendation for close follow-up with his PCP. Nicotine dependence. vaping cessation advised. NRT will be prescribed on discharge Pulmonary nodule. Recommend repeat chest CT in 12 months Time Attestation Total time managing care of this patient today: 35 mintues. Discharge Coordination Time (in mins): 35 Quality: Safe Use of Opioids Does Pt have an Active Cancer Diagnosis on the Problem List?: No Quality: Stroke Does the patient have a stroke diagnosis?: No Physical Exam Vital Signs: Vital Signs: Last Vital Signs Temp 97.7 F 10/03/23 03:06 Pulse 94 10/03/23 03:06 Resp 18 10/03/23 03:06 BP 121/68 10/03/23 03:06 Pulse Ox 92 10/03/23 03:06 O2 Del Method Room Air 10/03/23 03:06 BMI result Body Mass Index 26.9 Const: General: cooperative, comfortable, no acute distress, alert and awake Nutritional Appearance: average body habitus Orientation/consciousness: patient oriented x3 Resp: Other: no wheezing Effort & Inspection: normal respiratory effort, able to speak in complete sentences, no respiratory distress and no use of accessory muscles GI: Inspection: No distended Palpation (GI): Soft to palpation and nontender Neuro: General: patient oriented x3, moves all extremities and CN's II-XI intact bilaterally Extrem: General: Yes no pedal edema DS: Data Data Completed and Pending Labs on day of discharge: Laboratory Results - last 24 hr 10/02/23 10/02/23 07:59 08:22 TSH 1.14 Respiratory Panel Rascon See Note Adenovirus (Rapid PCR) Not Detected B.pert (TEM-PCR) Not Detected B.parapertussis DNA PCR Not Detected C. pneumoniae DNA (PCR) Not Detected Coronavirus OC43 (PCR) Not Detected Coronavirus HKU1 (PCR) Not Detected Coronavirus 229E (PCR) Not Detected Coronavirus NL63 (PCR) Not Detected Human Metapneumovir PCR Not Detected Influenza A (RT-PCR) Not Detected Influenza B (RT-PCR) Not Detected M. pneumoniae (PCR) Not Detected Parainfluenza 1 (PCR) Not Detected Parainfluenza 2 (PCR) Not Detected Parainfluenza 3 (PCR) Not Detected Parainfluenza 4 (PCR) Not Detected RSV (PCR) Not Detected Entero/Rhino (PCR) Detected A SARS-CoV-2 RNA (RT-PCR) Not Detected Discharge Plan Discharge Patient Disposition: Home, Self-Care Discharge Diagnosis: rhinovirus sinus tachycardia Referrals: Physician,Unknown J [Primary Care Provider] - 2 days Discharge Medications: New prednisone 20 mg tablet 40 mg PO DAILY 4 Days Qty: 8 0RF nicotine (polacrilex) [Nicorette] 2 mg gum 2 mg buccal Q2H Qty: 40 0RF Discharge Orders: Discharge Order (Routine); Ordered 10/03/23 Ordered By: Gretel Baxter Activity on Discharge: As tolerated Stand Alone Forms: Patient Portal Discharge page Activity Restrictions/Additional Instructions: Return to the emergency department with new or worsening symptoms. Such as fevers, chills, chest pain, shortness of breath, nausea, vomiting, dizziness, headache, vision changes, lethargy In case of emergency call 911 CT/CT chest wo IV con IMPRESSION: 4 mm left lower lobe pulmonary nodule. Follow-up chest CT in 12 months may be considered. Hepatic steatosis. Care Plan Goals: see below Health Concerns: rhinovirus sinus tachycardia - resolved pulmonar nodule hepatic steatosis Plan of Treatment: complete course of steroids as prescribed avoid vaping or tobacco products if able - can use nicotine gum as needed for cravings call to schedule follow up appointment with PCP 4mm pulmonary nodule see on chest CT - rect follow up chest CT in 12 months Assessment: see discharge summary Patient Instructions: Hypoxia (ED), Wheezing (ED)
--- NOTE | 2023-10-03 11:41 | PC.RT ---
pt walked appx. 200 feet with RT with Pulse Ox on. Sats 96-97% hr mid 90's. no resp distress noted and pt not sob.
--- NOTE | 2023-10-03 14:22 | MHC.CM.PN ---
PT DISCHARGED HOME TODAY WITH NO SERVICES VIA PRIVATE TRANSPORT
== END 2023-10-03 11:49 | disposition home or self-care (01) ==
LOC: HO.ED 13:17 → HO.EDOVER 15:46 → HO.S3 17:30
PROVIDERS: Physician Assistant; Admitting Provider Physician Assistant Medical; Emergency Provider Emergency Medicine; Visit Provider Physician Assistant Medical
DX: R00.0 Tachycardia, unspecified (principal); R07.9 Chest pain, unspecified; J00 Acute nasopharyngitis [common cold]; B34.8 Other viral infections of unspecified site; R91.1 Solitary pulmonary nodule; R05.9 Cough, unspecified; B34.1 Enterovirus infection, unspecified; R09.02 Hypoxemia; R06.2 Wheezing; K76.0 Fatty (change of) liver, not elsewhere classified; R06.02 Shortness of breath; Z11.52 Encounter for screening for COVID-19; Z20.828 Contact with and (suspected) exposure to other viral communicable diseases
CPT/HCPCS: 0241U; 36415; 71046; 71250; 80053; 83735; 84443; 84484; 85025; 85379; 85610; 87633; 93005; 94640; 96365; 96366; 96375; 96376; 99221; 99285; J2060; J2920; J2930; J3475

== ENCOUNTER → 2023-10-02 07:28 | Outpatient (BNV) | payer OTHER, SELFPAY | PROVIDERS: Admitting Provider Physician Assistant Medical; Emergency Provider Emergency Medicine; Visit Provider Internal Medicine Cardiovascular Disease | DX: R07.9 Chest pain, unspecified (principal) | CPT/HCPCS: 93010 ==

== ENCOUNTER → 2023-10-02 15:29 | Outpatient (BNV) | payer OTHER, SELFPAY | PROVIDERS: Admitting Provider Physician Assistant Medical; Emergency Provider Emergency Medicine; Visit Provider Physician Assistant Medical | DX: J06.9 Acute upper respiratory infection, unspecified (principal); B97.89 Other viral agents as the cause of diseases classified elsewhere; R00.0 Tachycardia, unspecified; R91.1 Solitary pulmonary nodule | CPT/HCPCS: 99223; 99239 ==

== ENCOUNTER 2023-10-09 15:43 | Outpatient (AMB) | payer OTHER, SELFPAY ==
[2023-10-09 15:48] VITALS: BP 126/80; O2SAT 98; BMI 26.6
--- NOTE | 2023-10-09 15:48 | A.OFFPC_ITS ---
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 Accompanied by: Self / Same As Patient Allergies amoxicillin Allergy (Severe, Verified 10/09/23 16:19) Hives Penicillins Allergy (Severe, Verified 10/09/23 16:19) Hives Medication List - Last Reconciled 10/09/23 by Amira Priest MD nicotine (polacrilex) (Nicorette) 2 mg buccal Q2H Tobacco use date assessed: 10/09/23 Dental Screening Dental Screen Date: 10/09/23 Did you have a dental visit in the last 12 months?: Yes Did you have a dental problem in the last 6 months where you did not have access to dental care?: No Was dental information given to patient?: Patient has dentist HPI HPI Comments History of Present Illness Details This is a 22-year-old male that comes today for hospital discharge follow-up with admission date 10/02/2023 and discharge date 10/03/2023 due to rhinovirus infection. He was complaining of shortness of breath and decreased oxygen saturation and was admitted for [address] was done and showed 4 mm lung nodule. He quit smoking. He is oxygen saturation at the moment is 98% on room air. He is cleared to go to work. EKG showed normal sinus rhythm. [facility] Medical History (Updated 10/09/23 @ 17:38 by Amira Priest MD) Anxiety and depression Surgical History No pertinent past surgical history Family History Mother Skin cancer Father Obstructive sleep apnea Hypertension Maternal Grandfather Myocardial infarction Social History Housing: House Alcohol intake: current Alcohol intake frequency: holidays/special occasions only Patient Tobacco Use Status: Former Tobacco user Tobacco use type: Cigarette e-Cigarette/Vaping Use: Former Use Date or number of years quit: February 2023 Second Hand Smoke Exposure: Yes Substance Use Type: Marijuana service: No Current occupational status: employed Cognitive needs: No Hearing needs: No Vision needs: No Questionnaire PHQ-9 Over the last 2 weeks, how often have you been bothered by any of the following problems? 1. Little interest or pleasure in doing things: not at all 2. Feeling down, depressed, or hopeless: not at all 3. Trouble falling or staying asleep, or sleeping too much: not at all 4. Feeling tired or having little energy: not at all 5. Poor appetite or overeating: not at all 6. Feeling bad about yourself - or that you are a failure or have let yourself or your family down: not at all 7. Trouble concentrating on things, such as reading the newspaper or watching television: not at all 8. Moving or speaking so slowly that other people could have noticed. Or the opposite - being so fidgety or restless that you have been moving around a lot more than usual: not at all 9. Thoughts that you would be better off or of hurting yourself in some way: not at all Total score: 0 Depression Screening Interpretation: Negative Depression Screening Done: Yes 02715 - PHQ-9 Billing: Yes Source: Developed by Drs. Be Siddiqui, Skylar Robbins, Masoud Purvis and colleagues, with an educational cata from [employer]. Thrive Questionnaire Date Thrive assessed: 10/09/23 I am a: Patient What is your living situation today?: I have a steady place to live Within the past 12 months, did the food you bought not last and you didn't have the money to get more?: Never true Within the past 12 months, did you worry whether your food would run out before you got money to buy more?: Never true Do you have trouble paying for medicines?: No Do you have trouble getting transportation to medical appointments?: No Do you have trouble paying your heating and electricity bill?: No Do you have trouble taking care of your child, family member or friend?: No Do you have trouble with day-to-day activities such as bathing, preparing meals, shopping, managing finances, etc.?: No Are you currently unemployed and looking for a job?: No Are you interested in more education?: No Please select the resources that you would like help with: None Currently or been in a relationship where the following occur: no concerns reported THRIVE Score: 0 AUDIT C Alcohol Use Questionnaire (AUDIT-C) 1. How often do you have a drink containing alcohol?: Monthly or less 2. How many drinks containing alcohol do you have on a typical day when you are drinking?: 1 or 2 3. How often do you have six or more drinks on one occasion?: Never Total Score: 1 Score Reviewed/Action Taken: No JUAN-7 AMB Questionnaire JUAN-7 Date JUAN - 7 assessed: 10/09/23 Feeling nervous, anxious, or on edge: 0 = Not at all Not being able to stop or control worryin = Not at all Worrying too much about different things: 0 = Not at all Trouble relaxin = Not at all Being so restless that it is hard to sit still: 0 = Not at all Becoming easily annoyed or irritable: 0 = Not at all Feeling afraid as if something awful might happen: 0 = Not at all Total JUAN-7 score (0-4 normal; 5-9 mild; 10-14 moderate; 15-21 severe): 0 Source: Developed by Drs. Be Siddiqui, Skylar Robbins, Masoud Purvis and colleagues, with an educational cata from [employer]. JUAN-7 Assessment Billing JUAN-7 Assessment Tool: JUAN-7 Assessment 61182 Review of Systems Const All systems reviewed & are unremarkable except as noted in HPI and below Eyes Reports no additional complaints, Denies change in vision and Denies other visual disturbances Card Denies chest pain at rest, Denies chest pain with activity, Denies edema, Denies irregular heart rhythm, Denies claudication, Denies dyspnea, Denies dyspnea on exertion, Denies orthopnea, Denies paroxysmal nocturnal dyspnea and Denies slow heart rate Resp Denies cough, Denies dyspnea and Denies dyspnea on exertion GI Denies abdominal pain, Denies change in bowel habits, Denies excessive flatus, Denies nausea and Denies vomiting Denies urinary hesitancy, Denies urinary incontinence and Denies urinary urgency Musc Denies abnormal gait, Denies atrophy, Denies deformity and Denies limited range of motion Skin/Breast Denies bleeding lesions, Denies changing lesions and Denies rash Neuro Denies abnormal gait and Denies lack of coordination Physical exam (Primary Care) Vital Signs: Last Vital Signs BP 126/80 10/09/23 15:48 BMI result Body Mass Index 26.6 Tobacco/Smoking Status: Tobacco use Status Tobacco use date assessed 10/09/23 10/09/23 15:56 Patient Tobacco Use Status Former Tobacco user 10/09/23 15:50 Tobacco use type Cigarette 10/09/23 15:50 e-Cigarette/Vaping Use Former Use 10/09/23 15:50 PHQ-9: PHQ-9 Score PHQ-9: Total score 0 10/09/23 16:23 Depression Screening Interpretation: Negative Thrive Assessment: Date of Thrive Assessment Date Thrive assessed 10/09/23 10/09/23 15:56 Currently or been in a relationship where the following occur: no concerns reported Eyes General: appearance normal, both eyes and all related structures Eyelids: Yes eyelids normal Conjunctivae: conjunctivae normal Neck Neck: Yes normal visual inspection and Yes supple Resp Effort & Inspection: normal respiratory effort Auscultation: clear to auscultation bilaterally Cardio Jugular venous distension: no JVD Rate: regular rate Rhythm: regular rhythm Heart sounds: S1 normal heart sound present and S2 normal heart sound present Extrem General: Yes full ROM Assessment and Plan Assessment & Plan (1) Hospital discharge follow-up: Code(s): Z09 - Encounter for follow-up examination after completed treatment for conditions other than malignant neoplasm Plan: Discharge date 10/03/2023 due to rhino virus. Patient feels markedly improved with normal oxygen saturation at room air. He quit smoking. (2) Rhinovirus infection: Code(s): B34.8 - Other viral infections of unspecified site Plan: He received systemic steroids and IV magnesium. Was discharged with prednisone 20 mg for 4 days. (3) Hypoxia: Code(s): R09.02 - Hypoxemia Plan: Receive systemic steroids. (4) Pulmonary nodule: Code(s): R91.1 - Solitary pulmonary nodule Plan: CT of chest done showing left lower pulmonary nodule of 4 mm. Coding Level of Care Code TCM Mod MDM <= 7 Days Diagnoses Hospital discharge follow-up Z09 Rhinovirus infection B34.8 Hypoxia R09.02 Pulmonary nodule R91.1 Additional Codes JUAN-7 Assessment Billing - JUAN-7 Assessment Tool: JUAN-7 Assessment 25307 ([id number]) Time Spent (min) 26
== END 2023-10-09 16:33 | disposition home or self-care (01) ==
PROVIDERS: Visit Provider Internal Medicine
DX: B34.8 Other viral infections of unspecified site (principal); R09.02 Hypoxemia; R91.1 Solitary pulmonary nodule
CPT/HCPCS: 99213

== ENCOUNTER 2024-06-17 15:10 | Outpatient (AMB) | payer OTHER, SELFPAY ==
--- NOTE | 2024-06-17 15:11 | MHC.PC.OV ---
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 Accompanied by: Self / Same As Patient Allergies amoxicillin Allergy (Severe, Verified 06/17/24 15:35) Hives Penicillins Allergy (Severe, Verified 06/17/24 15:35) Hives Medication List - Last Reconciled 06/17/24 by Amira Priest MD No Known Home Meds Tobacco use date assessed: 10/09/23 Dental Screening Dental Screen Date: 06/17/24 Did you have a dental visit in the last 12 months?: Yes Did you have a dental problem in the last 6 months where you did not have access to dental care?: No Was dental information given to patient?: Patient has dentist HPI HPI Comments History of Present Illness Details The patient is a 23-year-old male presenting for an annual physical examination. During the visit, the patient was noted to have an increase in weight, with a current weight of 222 pounds compared to a previous weight of 196 pounds, resulting in a BMI of 30, classified as obesity. There is a history of a benign pulmonary nodule noted on a chest CT scan, which was performed previously due to illness, revealing a 4 mm nodule. A follow-up CT is recommended once a year. The patient's familial medical history includes a mother with a history of skin cancer and a father with hypertension and sleep apnea. The patient confirmed no current medications or surgeries in the past. Previously conducted blood work returned within normal limits, with specific mention that cholesterol levels were not assessed at that time. - Advised repeat of Tdap vaccine, last received at age 11. - Recommended CT scan of the chest due in September. - Pending laboratory work for cholesterol, blood glucose, kidney, and liver function. - Scheduled flu vaccination upcoming at work. PFSH Medical History Anxiety and depression Surgical History No pertinent past surgical history Family History Mother Skin cancer Father Obstructive sleep apnea Hypertension Maternal Grandfather Myocardial infarction Social History (Updated 06/17/24 @ 15:38 by Amira Priest MD) Housing: House Alcohol intake: current Alcohol intake frequency: a few times a month Alcohol type: beer and hard liquor Patient Tobacco Use Status: Never used Tobacco e-Cigarette/Vaping Use: Currently Using (sometimes) Second Hand Smoke Exposure: Yes Substance Use Type: Marijuana service: No Current occupational status: employed Cognitive needs: No Hearing needs: No Vision needs: No Questionnaire PHQ-9 Over the last 2 weeks, how often have you been bothered by any of the following problems? 1. Little interest or pleasure in doing things: not at all 2. Feeling down, depressed, or hopeless: not at all 3. Trouble falling or staying asleep, or sleeping too much: not at all 4. Feeling tired or having little energy: not at all 5. Poor appetite or overeating: not at all 6. Feeling bad about yourself - or that you are a failure or have let yourself or your family down: not at all 7. Trouble concentrating on things, such as reading the newspaper or watching television: not at all 8. Moving or speaking so slowly that other people could have noticed. Or the opposite - being so fidgety or restless that you have been moving around a lot more than usual: not at all 9. Thoughts that you would be better off or of hurting yourself in some way: not at all Total score: 0 Depression Screening Interpretation: Negative Depression Screening Done: Yes 25245 - PHQ-9 Billing: Yes Source: Developed by Drs. Be Siddiqui, Skylar Robbins, Masoud Purvis and colleagues, with an educational cata from [employer] Thrive Questionnaire Date Thrive assessed: 06/17/24 I am a: Patient What is your living situation today?: I have a steady place to live Within the past 12 months, did the food you bought not last and you didn't have the money to get more?: Never true Within the past 12 months, did you worry whether your food would run out before you got money to buy more?: Never true Do you have trouble paying for medicines?: No Do you have trouble getting transportation to medical appointments?: No Do you have trouble paying your heating and electricity bill?: No Do you have trouble taking care of your child, family member or friend?: No Do you have trouble with day-to-day activities such as bathing, preparing meals, shopping, managing finances, etc.?: No Are you currently unemployed and looking for a job?: No Are you interested in more education?: Yes Please select the resources that you would like help with: None Currently or been in a relationship where the following occur: No concerns reported THRIVE Score: 0 AUDIT C Alcohol Use Questionnaire (AUDIT-C) 1. How often do you have a drink containing alcohol?: 2-4 times a month 2. How many drinks containing alcohol do you have on a typical day when you are drinking?: 5 or 6 3. How often do you have six or more drinks on one occasion?: Monthly Total Score: 6 Score Reviewed/Action Taken: Yes JUAN-7 AMB Questionnaire JUAN-7 Date JUAN - 7 assessed: 06/17/24 Feeling nervous, anxious, or on edge: 0 = Not at all Not being able to stop or control worryin = Not at all Worrying too much about different things: 0 = Not at all Trouble relaxin = Not at all Being so restless that it is hard to sit still: 0 = Not at all Becoming easily annoyed or irritable: 0 = Not at all Feeling afraid as if something awful might happen: 0 = Not at all Total JUAN-7 score (0-4 normal; 5-9 mild; 10-14 moderate; 15-21 severe): 0 Source: Developed by Drs. Be Siddiqui, Skylar Robbins, Masoud Purvis and colleagues, with an educational cata from [employer] JUAN-7 Assessment Billing JUAN-7 Assessment Tool: JUAN-7 Assessment 25275 Review of Systems Const All systems reviewed & are unremarkable except as noted in HPI and below Card Denies chest pain at rest, Denies chest pain with activity, Denies edema, Denies irregular heart rhythm, Denies claudication, Denies dyspnea, Denies dyspnea on exertion, Denies orthopnea, Denies paroxysmal nocturnal dyspnea and Denies slow heart rate Resp Denies cough, Denies dyspnea and Denies dyspnea on exertion GI Denies abdominal pain, Denies change in bowel habits, Denies excessive flatus, Denies nausea and Denies vomiting Neuro Denies behavioral changes and Denies lack of coordination Psych Denies behavioral changes Physical exam (Primary Care) Vital Signs: Last Vital Signs BP 118/80 06/17/24 15:14 BMI result Body Mass Index 30.1 BMI Assessment/Plan discussion: High BMI High, discussed plan: lifestyle, weight reduction, dietary and physical activity Tobacco/Smoking Status: Tobacco use Status Tobacco use date assessed 10/09/23 06/17/24 15:24 Patient Tobacco Use Status Never used Tobacco 06/17/24 15:24 Tobacco use type 06/17/24 15:24 e-Cigarette/Vaping Use Currently Using (sometimes) 06/17/24 15:24 PHQ-9: PHQ-9 Score PHQ-9: Total score 0 06/17/24 15:24 Depression Screening Interpretation: Negative Thrive Assessment: Date of Thrive Assessment Date Thrive assessed 06/17/24 06/17/24 15:24 Currently or been in a relationship where the following occur: No concerns reported HENMT Head: Yes normal to inspection, Yes normocephalic and Yes atraumatic Ears: external ears normal Eyes General: appearance normal, both eyes and all related structures Eyelids: Yes eyelids normal Conjunctivae: conjunctivae normal Neck Neck: Yes normal visual inspection and Yes supple Resp Effort & Inspection: normal respiratory effort Auscultation: clear to auscultation bilaterally Cardio Jugular venous distension: no JVD Rate: regular rate Rhythm: regular rhythm Heart sounds: S1 normal heart sound present and S2 normal heart sound present GI Inspection: Yes normal to inspection Palpation (GI): Soft to palpation and nontender Auscultation: normal bowel sounds Skin General skin exam: no rashes or lesions noted Neuro General: no focal motor deficits Extrem General: Yes full ROM Psych Appearance: grossly normal Office Procedures Flu Questionnaire Does the patient have a severe egg allergy?: No Immunizations Fluarix Triv [id number] (PF) 45 mcg (15 mcg x 3)/0.5 mL IM syringe Performing Provider: Amira Priest MD [place] [facility] [place] [facility] Documented (not given) by: DILAN Yan on 06/17/24 15:24 Reason Not Given: Patient Refused Coding Level of Care Code Est Pt Prev Care 18-39y(09462) Diagnoses Physical exam Z00.00 Additional Codes PHQ-9 - 08341 - PHQ-9 Billing: Yes ([id number]) JUAN-7 Assessment Billing - JUAN-7 Assessment Tool: JUAN-7 Assessment 77140 ([id number]) Time Spent (min) 30 Assessment & Plan Assessment & Plan (1) Physical exam: Code(s): Z00.00 - Encounter for general adult medical examination without abnormal findings Category: Medical Plan 1. No specific dietary or exercise plan was noted: - Benign Pulmonary Nodule: A repeat chest CT scan scheduled for yearly follow-up to be conducted in September. - Penicillin Allergy: Noted with manifestations of hives, advised to avoid penicillins. - Familial Hypertension: Family history recorded; no personal hypertension management discussed. - Familial Obstructive Sleep Apnea: Family history noted with no current symptoms reported. Patient was informed and verbally consented to the use of an ambient scribe for clinic note documentation during this visit. I discussed the implications of a BMI of 30, categorizing the patient as obese and recommending weight reduction strategies to improve overall health. The need for a repeat pulmonary CT scan was emphasized to monitor the identified pulmonary nodule, with the exam planned for September. We conversed about the importance of the Tdap vaccine update and flu vaccination, with options provided for administration at work. The patient's familial predisposition to hypertension and obstructive sleep apnea was acknowledged, highlighting the importance of monitoring. The patient was advised to minimize alcohol intake to below seven servings per week. Ordinarily, any negative reactions to vaccinations were noted as manageable. Orders: Orders Influenza [id number] Immunization Today Z23 - Encounter for immunization CT chest wo IV con 4 Months R91.1 - Solitary pulmonary nodule Comprehensive [place]. Panel Fast Today Z00.00 - Encounter for general adult medical examination without abnormal findings Lipid Panel Today Z00.00 - Encounter for general adult medical examination without abnormal findings Patient Instructions: - Schedule the Tdap vaccination update at work or here. - Maintain current flu vaccination schedule at work. - Keep alcohol consumption to fewer than seven drinks per week. - Follow up with chest CT scan as scheduled in September. - Complete fasting lab work for cholesterol, sugar, kidney, and liver function within three months. - Monitor weight and consider adopting weight management strategies.
[2024-06-17 15:14] VITALS: BP 118/80; BMI 30.1
== END 2024-06-17 15:45 | disposition home or self-care (01) ==
PROVIDERS: PCP Internal Medicine; Visit Provider Internal Medicine
DX: Z00.00 Encounter for general adult medical examination without abnormal findings (principal); Z23 Encounter for immunization

== ENCOUNTER → 2024-06-17 15:10 | Outpatient (BNVA) | payer OTHER, SELFPAY | PROVIDERS: PCP Internal Medicine; Visit Provider Internal Medicine | DX: Z00.00 Encounter for general adult medical examination without abnormal findings (principal); Z28.21 Immunization not carried out because of patient refusal | CPT/HCPCS: 90471; 96127 ==

== ENCOUNTER 2024-07-29 17:30 | Outpatient (AMB) | payer OTHER, SELFPAY ==
[2024-07-29 17:33] VITALS: BP 134/62; PULSE 108; O2SAT 98; BMI 29.4
--- NOTE | 2024-07-29 17:33 | A.OFFPC_ITS ---
Vital Signs 07/29/24 17:33 Height 6 ft Weight 217 lb 2 oz BMI 29.4 BP 134/62 Blood Pressure Location Lt brachial Position Sitting Pulse 108 H Pulse Source Pulse Oximeter Pulse Oximetry (%) 98 Oxygen Delivery Method Room Air Intake Visit Reasons: follow up Lamp Stack Developer Required: No Accompanied by: Self / Same As Patient Allergies amoxicillin Allergy (Severe, Verified 07/29/24 17:38) Hives Penicillins Allergy (Severe, Verified 07/29/24 17:38) Hives Medication List - Last Reconciled 07/29/24 by Amira Priest MD No Known Home Meds Tobacco use date assessed: 07/29/24 Dental Screening Dental Screen Date: 07/29/24 Did you have a dental visit in the last 12 months?: Yes Did you have a dental problem in the last 6 months where you did not have access to dental care?: No Was dental information given to patient?: Patient has dentist HPI HPI Comments History of Present Illness Details This is a 23-year-old male that complains of right testicular swelling and the feeling like a bag of worms that started about 2 weeks ago. He has no urinary complaints. No fever. No penile discharge. No erectile dysfunction. No previous trauma to the area. Patient was examined and Sofy Eubanks CMA was resaw machine operator. [facility] Medical History (Updated 07/29/24 @ 17:48 by Amira Priest MD) Anxiety and depression Surgical History No pertinent past surgical history Family History Mother Skin cancer Father Obstructive sleep apnea Hypertension Maternal Grandfather Myocardial infarction Social History Housing: House Alcohol intake: current Alcohol intake frequency: a few times a month Alcohol type: beer and hard liquor Patient Tobacco Use Status: Never used Tobacco e-Cigarette/Vaping Use: Currently Using (Sometime) Second Hand Smoke Exposure: Yes Substance Use Type: Marijuana service: No Current occupational status: employed ([employer] [facility] [place]) Cognitive needs: No Hearing needs: No Vision needs: No Questionnaire PHQ-9 Over the last 2 weeks, how often have you been bothered by any of the following problems? 1. Little interest or pleasure in doing things: not at all 2. Feeling down, depressed, or hopeless: not at all 3. Trouble falling or staying asleep, or sleeping too much: not at all 4. Feeling tired or having little energy: not at all 5. Poor appetite or overeating: not at all 6. Feeling bad about yourself - or that you are a failure or have let yourself or your family down: not at all 7. Trouble concentrating on things, such as reading the newspaper or watching television: not at all 8. Moving or speaking so slowly that other people could have noticed. Or the opposite - being so fidgety or restless that you have been moving around a lot more than usual: not at all 9. Thoughts that you would be better off or of hurting yourself in some way: not at all Total score: 0 Depression Screening Interpretation: Negative Depression Screening Done: Yes 07651 - PHQ-9 Billing: Yes Source: Developed by Drs. Be Siddiqui, Skylar Robbins, Masoud Pruvis and colleagues, with an educational cata from [employer]. Thrive Questionnaire Date Thrive assessed: 07/29/24 I am a: Patient What is your living situation today?: I have a steady place to live Within the past 12 months, did the food you bought not last and you didn't have the money to get more?: Never true Within the past 12 months, did you worry whether your food would run out before you got money to buy more?: Never true Do you have trouble paying for medicines?: No Do you have trouble getting transportation to medical appointments?: No Do you have trouble paying your heating and electricity bill?: No Do you have trouble taking care of your child, family member or friend?: No Do you have trouble with day-to-day activities such as bathing, preparing meals, shopping, managing finances, etc.?: No Are you currently unemployed and looking for a job?: No Are you interested in more education?: Yes Please select the resources that you would like help with: None Currently or been in a relationship where the following occur: No concerns reported THRIVE Score: 0 AUDIT C Alcohol Use Questionnaire (AUDIT-C) 1. How often do you have a drink containing alcohol?: 2-4 times a month 2. How many drinks containing alcohol do you have on a typical day when you are drinking?: 5 or 6 3. How often do you have six or more drinks on one occasion?: Monthly Total Score: 6 Score Reviewed/Action Taken: Yes JUAN-7 AMB Questionnaire JUAN-7 Date JUAN - 7 assessed: 07/29/24 Feeling nervous, anxious, or on edge: 0 = Not at all Not being able to stop or control worryin = Not at all Worrying too much about different things: 0 = Not at all Trouble relaxin = Not at all Being so restless that it is hard to sit still: 0 = Not at all Becoming easily annoyed or irritable: 0 = Not at all Feeling afraid as if something awful might happen: 0 = Not at all Total JUAN-7 score (0-4 normal; 5-9 mild; 10-14 moderate; 15-21 severe): 0 Source: Developed by Drs. Be Siddiqui, Skylar Robbins, Masoud Purvis and colleagues, with an educational cata from [employer]. JUAN-7 Assessment Billing JUAN-7 Assessment Tool: JUNA-7 Assessment 87833 Review of Systems Const All systems reviewed & are unremarkable except as noted in HPI and below Card Denies chest pain at rest, Denies chest pain with activity, Denies edema, Denies irregular heart rhythm, Denies claudication, Denies dyspnea, Denies dyspnea on exertion, Denies orthopnea, Denies paroxysmal nocturnal dyspnea and Denies slow heart rate Resp Denies cough, Denies dyspnea and Denies dyspnea on exertion GI Denies abdominal pain, Denies change in bowel habits, Denies excessive flatus, Denies nausea and Denies vomiting Reports scrotal swelling, Denies urinary hesitancy, Denies urinary incontinence and Denies urinary urgency Musc Denies abnormal gait, Denies atrophy, Denies deformity and Denies limited range of motion Skin/Breast Denies bleeding lesions, Denies changing lesions and Denies rash Neuro Denies abnormal gait, Denies behavioral changes and Denies lack of coordination Psych Denies behavioral changes Physical exam (Primary Care) Vital Signs: Last Vital Signs Pulse 108 H 07/29/24 17:33 BP 134/62 07/29/24 17:33 Pulse Ox 98 07/29/24 17:33 Oxygen Delivery Method Room Air 01/02/25 17:33 BMI result Body Mass Index 29.4 Tobacco/Smoking Status: Tobacco use Status Tobacco use date assessed 07/29/24 07/29/24 17:39 Patient Tobacco Use Status Never used Tobacco 07/29/24 17:33 Tobacco use type 06/17/24 15:45 e-Cigarette/Vaping Use Currently Using (Sometime) 07/29/24 17:39 PHQ-9: PHQ-9 Score PHQ-9: Total score 0 07/29/24 17:39 Depression Screening Interpretation: Negative Thrive Assessment: Date of Thrive Assessment Date Thrive assessed 07/29/24 07/29/24 17:39 Currently or been in a relationship where the following occur: No concerns reported Resp Effort & Inspection: normal respiratory effort Auscultation: clear to auscultation bilaterally Cardio Jugular venous distension: no JVD Rate: regular rate Rhythm: regular rhythm Heart sounds: S1 normal heart sound present and S2 normal heart sound present Male General Exam: Yes normal external exam Scrotum: Varicocele present on the right Extrem General: Yes full ROM Coding Level of Care Code Est Pt Level 3 (33494) Complex EM visit Add On G2211 Diagnoses Varicocele I86.1 Additional Codes JUAN-7 Assessment Billing - JUAN-7 Assessment Tool: JUAN-7 Assessment 25754 ([id number]) PHQ-9 - 09757 - PHQ-9 Billing: Yes ([id number]) Time Spent (min) 18 Assessment & Plan Assessment & Plan (1) Varicocele: Code(s): I86.1 - Scrotal varices Category: Medical Plan: Ultrasound of scrotum ordered. Orders: Orders US scrotum Today I86.1 - Scrotal varices
== END 2024-07-29 17:50 | disposition home or self-care (01) ==
LOC: HO.HMCH 17:30
PROVIDERS: PCP Internal Medicine; Visit Provider Internal Medicine
DX: I86.1 Scrotal varices (principal)

== ENCOUNTER → 2024-07-29 17:30 | Outpatient (BNVA) | payer OTHER, SELFPAY | PROVIDERS: PCP Internal Medicine; Visit Provider Internal Medicine | DX: I86.1 Scrotal varices (principal) | CPT/HCPCS: 96127 ==

== ENCOUNTER 2024-10-18 07:18 | Outpatient (REF) | payer OTHER, SELFPAY ==
--- NOTE | ~2024-10-18 | CT_ITS ---
CLINICAL HISTORY: R91.1 - Solitary pulmonary nodule CT chest without IV contrast. COMPARISON: CT chest dated 10/02/23 at 11:45 EST FINDINGS: Visualized thyroid is unremarkable. No supraclavicular or axillary lymphadenopathy. Ascending aorta and main pulmonary artery are normal in caliber. No pericardial effusion. Normal esophagus. No mediastinal lymphadenopathy. No pleural effusion. No consolidation. Trachea and central airways are clear. No significant bronchial wall thickening. No bronchiectasis. Left lower lobe 4 mm pulmonary nodule (series 4, image 125), stable. No new pulmonary nodule identified. Hepatic steatosis. No acute fracture or suspicious osseous abnormality. IMPRESSION: 1. Stable left lower lobe 4 mm pulmonary nodule. No further follow-up recommendations. 2. Hepatic steatosis. This document has been electronically signed by: Oren Huggins MD on 10/18/2024 16:02:08
== END 2024-10-18 07:19 | disposition home or self-care (01) ==
LOC: HO.CT 07:18
PROVIDERS: PCP Internal Medicine; Visit Provider Internal Medicine
DX: R91.1 Solitary pulmonary nodule (principal)
CPT/HCPCS: 71250

== ENCOUNTER → 2024-10-18 07:20 | Outpatient (BNV) | payer OTHER, SELFPAY | PROVIDERS: PCP Internal Medicine; Visit Provider Radiology Diagnostic Radiology | DX: R91.1 Solitary pulmonary nodule (principal) | CPT/HCPCS: 71250 ==

== ENCOUNTER 2024-10-27 06:34 | Outpatient (REF) | payer OTHER, SELFPAY ==
--- OUTSIDE RECORDS SUMMARY | 2024-10-27 06:36 | XMS_ITS | Encounter Summary ---
Author Organization [facility] Address [address] [place] [address] Phone Care Team Providers Care Cleaner Signs Name Role Phone Juaquin Hendrix MD Primary Care Provider [phone] Encounter Details Date Type Department Care Team (Late st Contact Info) Description 03/05/2017 Conversion Encounter [facility] - [address], [address] [place] [address] Juaquin Hendrix MD [address] [place] [id number] Social History Tobacco Use Types Packs/Day Years Used Date Smoking Tobacco: Never Assessed Sex and Gender Information Value Date Recorded Sex Assigned at Not on file Legal Sex Male 3:08 PM EST Gender Identity Not on file Sexual Orientation Not on file documented as of this encounter Plan of Treatment Not on file documented as of this encounter Visit Diagnoses Not on filedocumented in this encounter Care Teams Cleaner Signs Relationship Specialty Start Date End Date Juaquin Hendrix MD [address] [place] [address] PCP - General 09/17/16 07/13/20 documented as of this encounter
[2024-10-27 08:12] LABS: Alanine Aminotransferase 74 U/L (0-40); Albumin Level 4.4 g/dL (3.5-5.0); Alkaline Phosphatase 51 U/L (39-117); Anion Gap 10 (12-20); Aspartate Amino Transferase 35 U/L (5-37); Bilirubin Total 1.2 mg/dL (0.0-1.0); Blood Urea Nitrogen 20 mg/dL (9-16); Calcium 9.4 mg/dL (8.4-10.2); Carbon Dioxide 27 mmol/L (22-29); Chloride 109 mmol/L (96-108); Cholesterol 143 mg/dL (<200); Estimated Glomerular Filt Rate > 60; Glucose Fasting 95 mg/dL (60-99); HDL Cholesterol 41 mg/dL (>40); LDL Cholesterol Calculated 81 mg/dL (<100); Potassium 3.8 mmol/L (3.3-5.1); Sodium 142 mmol/L (135-145); Total Protein 7.2 g/dL (6.5-8.0); Triglycerides 105 mg/dL (<150)
== END 2024-10-27 06:35 | disposition home or self-care (01) ==
LOC: HO.LAB 06:34
PROVIDERS: PCP Internal Medicine; Visit Provider Internal Medicine
DX: Z00.00 Encounter for general adult medical examination without abnormal findings (principal)
CPT/HCPCS: 36415; 80053; 80061

== ENCOUNTER 2025-06-29 10:06 | Outpatient (AMB) | payer OTHER, SELFPAY ==
[2025-06-29 10:16] VITALS: BP 108/80; PULSE 69; TEMP 36.5; O2SAT 97; BMI 29.2
--- NOTE | 2025-06-29 10:16 | MHC.PC.OV ---
Vital Signs 06/29/25 10:16 Height 6 ft Weight 215 lb BMI 29.2 BP 108/80 Blood Pressure Location Lt brachial Position Sitting Pulse 69 Pulse Source Pulse Oximeter Temp 97.7 F Temp Source Oral Pulse Oximetry (%) 97 Oxygen Delivery Method Room Air Intake Visit Reasons: Annual Exam Addictions Counselor Assistant Required: No Accompanied by: Self / Same As Patient Allergies amoxicillin Allergy (Severe, Verified 06/29/25 10:39) Hives Penicillins Allergy (Severe, Verified 06/29/25 10:39) Hives Medication List - Last Reconciled 06/29/25 by Amira Priest MD No Known Home Meds Tobacco use date assessed: 06/29/25 Dental Screening Dental Screen Date: 06/29/25 Did you have a dental visit in the last 12 months?: Yes Was dental information given to patient?: Patient has dentist HPI HPI Comments History of Present Illness Details The patient is a 24 year old individual presenting for a physical examination. The patient's last blood work was in October and included normal results for cholesterol, glucose, kidney function, and liver function. A prior CT scan of the chest revealed a very small lung nodule and incidental fatty liver, for which dietary changes were suggested. The patient has no history of surgeries. Allergies include penicillin and amoxicillin. The patient takes no medications. The patient is a former tobacco user, having quit a while ago. The patient drinks beer but no longer consumes hard liquor. Family history is significant for a mother with basal cell carcinoma and a father with hypertension. 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 1. Little interest or pleasure in doing things: not at all 2. Feeling down, depressed, or hopeless: not at all 3. Trouble falling or staying asleep, or sleeping too much: not at all 4. Feeling tired or having little energy: not at all 5. Poor appetite or overeating: not at all 6. Feeling bad about yourself - or that you are a failure or have let yourself or your family down: not at all 7. Trouble concentrating on things, such as reading the newspaper or watching television: not at all 8. Moving or speaking so slowly that other people could have noticed. Or the opposite - being so fidgety or restless that you have been moving around a lot more than usual: not at all 9. Thoughts that you would be better off or of hurting yourself in some way: not at all Total score: 0 Depression Screening Interpretation: Negative Depression Screening Done: Yes 61428 - PHQ-9 Billing: Yes Source: Developed by Drs. Be Siddiqui, Skylar Robbins, Masoud Purvis and colleagues, with an educational cata from [employer]. Thrive Questionnaire Date Thrive assessed: 06/29/25 I am a: Patient What is your living situation today?: I choose not to answer this question Within the past 12 months, did the food you bought not last and you didn't have the money to get more?: I choose not to answer this question Within the past 12 months, did you worry whether your food would run out before you got money to buy more?: I choose not to answer this question Do you have trouble paying for medicines?: I choose not to answer this question Do you have trouble getting transportation to medical appointments?: I choose not to answer this question Do you have trouble paying your heating and electricity bill?: I choose not to answer this question Do you have trouble taking care of your child, family member or friend?: I choose not to answer this question Do you have trouble with day-to-day activities such as bathing, preparing meals, shopping, managing finances, etc.?: I choose not to answer this question Are you currently unemployed and looking for a job?: I choose not to answer this question Are you interested in more education?: I choose not to answer this question Please select the resources that you would like help with: None Currently or been in a relationship where the following occur: I choose not to answer THRIVE Score: 0 AUDIT C Alcohol Use Questionnaire (AUDIT-C) 1. How often do you have a drink containing alcohol?: Never Total Score: 0 Score Reviewed/Action Taken: No JUAN-7 AMB Questionnaire JUAN-7 Date JUAN - 7 assessed: 06/29/25 Feeling nervous, anxious, or on edge: 0 = Not at all Not being able to stop or control worryin = Not at all Worrying too much about different things: 0 = Not at all Trouble relaxin = Not at all Being so restless that it is hard to sit still: 0 = Not at all Becoming easily annoyed or irritable: 0 = Not at all Feeling afraid as if something awful might happen: 0 = Not at all Total JUAN-7 score (0-4 normal; 5-9 mild; 10-14 moderate; 15-21 severe): 0 Source: Developed by Drs. Be Siddiqui, Skylar Robbins, Masoud Purvis and colleagues, with an educational cata from [employer]. JUAN-7 Assessment Billing JUAN-7 Assessment Tool: JUAN-7 Assessment 08998 Review of Systems Const All systems reviewed & are unremarkable except as noted in HPI and below Card Denies chest pain at rest, Denies chest pain with activity, Denies edema, Denies irregular heart rhythm, Denies claudication, Denies dyspnea, Denies dyspnea on exertion, Denies orthopnea, Denies paroxysmal nocturnal dyspnea and Denies slow heart rate Resp Denies cough, Denies dyspnea and Denies dyspnea on exertion Physical exam (Primary Care) Vital Signs: Last Vital Signs Temp 97.7 F 06/29/25 10:16 Pulse 69 06/29/25 10:16 BP 108/80 06/29/25 10:16 Pulse Ox 97 06/29/25 10:16 Oxygen Delivery Method Room Air 06/29/25 10:16 BMI result Body Mass Index 29.2 Tobacco/Smoking Status: Tobacco use Status Tobacco use date assessed 06/29/25 06/29/25 10:17 Patient Tobacco Use Status Current everyday Tobacco 06/29/25 10:22 Tobacco use type 06/17/24 15:45 e-Cigarette/Vaping Use Currently Using (Sometime) 06/29/25 10:16 PHQ-9: PHQ-9 Score PHQ-9: Total score 0 06/29/25 10:17 Depression Screening Interpretation: Negative Thrive Assessment: Date of Thrive Assessment Date Thrive assessed 06/29/25 06/29/25 10:17 Currently or been in a relationship where the following occur: I choose not to answer [facility] Head: Yes normal to inspection, Yes normocephalic and Yes atraumatic Ears: external ears normal Eyes General: appearance normal, both eyes and all related structures Eyelids: Yes eyelids normal Conjunctivae: conjunctivae normal Neck Neck: Yes normal visual inspection and Yes supple Resp Effort & Inspection: normal respiratory effort Auscultation: clear to auscultation bilaterally Cardio Jugular venous distension: no JVD Rate: regular rate Rhythm: regular rhythm Heart sounds: S1 normal heart sound present and S2 normal heart sound present GI Inspection: Yes normal to inspection Palpation (GI): Soft to palpation and nontender Auscultation: normal bowel sounds Skin General skin exam: no rashes or lesions noted Neuro General: no focal motor deficits Extrem General: Yes full ROM Psych Appearance: grossly normal Office Procedures Flu Questionnaire Does the patient have a severe egg allergy?: No Does the patient have severe life threatening allergies?: No Does the patient have a fever or illness today?: No Has the patient ever had Guillain-[place] Syndrome?: No Has the patient ever had any past reaction to a flu shot?: No Immunizations Fluarix [id number] (PF) 45 mcg (15 mcg x 3)/0.5 mL IM syringe Performing Provider: Amira Priest MD [facility] Documented (not given) by: Katarina Nassar CMA on 06/29/25 10:23 Reason Not Given: Patient Refused Coding Level of Care Code Est Pt Prev Care 18-39y(71067) Diagnoses Physical exam Z00.00 Additional Codes PHQ-9 - 65088 - PHQ-9 Billing: Yes ([id number]) JUAN-7 Assessment Billing - JUAN-7 Assessment Tool: JUAN-7 Assessment 88744 ([id number]) Time Spent (min) 30 Assessment & Plan Assessment & Plan (1) Physical exam: Code(s): Z00.00 - Encounter for general adult medical examination without abnormal findings Category: Medical Plan Plan 1. Annual Physical Examination The patient presents for a routine annual physical. Recent blood work from October was normal and does not require repeating. The patient is up to date on the influenza vaccine. Physical exam was unremarkable. The patient will continue with routine health maintenance. Orders: Orders Influenza [id number] Immunization Today Z23 - Encounter for immunization
--- OUTSIDE RECORDS SUMMARY | 2025-06-29 11:32 | XMS_ITS | Clinical Summary ---
Author Organization [facility] Address [address] [place] [address] Phone Care Team Providers Care Converter Supervisor Name Role Phone Unavailable Primary Care Provider Unavailabl e Allergies Active Allergy Reactions Criticality Noted Date Comments Amoxicillin Hives Medications PROTEIN PO Take by mouth. Acti ve LORazepam 0.5 MG tabletIndicatio ns:Anxiety 1 tab prn anxiety 15 tablet 8 Active Additional Information Patient not taking.Reported on 09/01/2018 Active Problems Problem Noted Date Diagnosed Date Pilonidal cyst without infection 12/21/2019 Assessment & Plan (12/21/2019 10:09 AM EDT): Keep area clean with soap/warm water, warm soaks, and may apply topical bacitracin 2 times daily Call back if worsening or any sign of infection Consider surgical evaluation at [facility] if persistent Influenza-like symptoms in pediatric patient 11/2018 Assessment & Plan (09/01/2018 8:21 PM EST): Likely dx. Rest, fluids, recheck 1-2 d prn Anxiety 05/29/2018 Overview (06/01/2018): SCARED for 30 initial Assessment & Plan (05/29/2018 5:29 PM EDT): Having significant social anxiety for a few weeks. Stressors include school and thinking about next yr college. He is looking for help. Discussed with him and dad for 30 min with over 50% of the time in counseling Recommended both short term medication but very rarely needed and therapy. He is interested in both. Will get a scared screening. F/u with me in 4 weeks. Resolved Problems Problem Noted Date Diagnosed Date Resolved Date Pilonidal cyst with abscess 07/22/2017 04/02/2018 Overview (07/22/2017): Will apply heat and start Bactrim. Recheck 2-3d for I&D if needed. Plantar wart of left foot 07/22/2017 Overview (07/22/2017): Will apply LN and the Compound W Immunizations Immunization Administration Dates Next Due DTaP 12/05/2005, 2,04/27/2001,02/23,2000 HPV Vaccine 9 Valent 12/20/2014 HPV, Quadrivalent 03/31/2014,03/17/2013 Hep B, ped/adol 01/25/2002,04/27/2001,2000 Hib (PRP-T) 01/25/2002, 1,02/23/2001,12/26 IPV 12/05/2005, 2,02/23/2001,12/26 Influenza, injectable, quadr ivalent, preservative free 05/21/2016,03/31/2014 Influenza, injectable, trivalent 05/28/2012 MMR 12/05/2005,10/23/2001 Meningococcal Conj (Menactra) MCV4P 04/02/2018,0 01/22/2012 Pneumococcal Conjugate 12/27/2004,2000,02/23/2001,12/26 Tdap 01/22/2012 Varicella 01/11/2009,01/25/2002 Family History Relation Name Status Comments Child Children: ari ture -self Maternal Grandmother Materna l Aunt: cancer-skin Mother Alive Mother: cancer- skin, eczema Social History Tobacco Use Types Packs/Day Years Used Date Smoking Tobacco: Never Tobacco Cessation:Counseling Given: Yes Comments:stopped vaping Alcohol Use Standard Drinks/Week Comments No 0 (1 standard drink = 0.6 oz pur e alcohol) Hunger/Food Answer Date Recorded No 04/22/2020 Stable Housing Answer Date Recorded No 04/22/2020 Transportation Concerns Answer Date Rec orded No 04/22/2020 Hazards in Home Answer Date Recorded No 06/09/2020 Financing Utilities Answer Date Recorde d No 06/09/2020 Safety at Home Answer Date Recorded No 06/09/2020 Outside Support Answer Date Recorded No 06/09/2020 Understanding Health Concerns Answer Da te Recorded No 06/09/2020 Financing Health Concerns Answer Date R ecorded No 06/09/2020 Missing School or Work Answer Date [place] r[place] No 06/09/2020 Sex and Gender Information Value Date Recorded Sex Assigned at Not on file Legal Sex Male 3:08 PM EST Gender Identity Not on file Sexual Orientation Not on file Last Filed Vital Signs Vital Sign Reading Time Taken Comments Blood Pressure 116/76 04/02/2018 9:08 AM EDT Pulse 83 04/02/2018 9:08 AM EDT Temperature 37 C (98.6 F) 12/21/2019 9:40 AM EDT Respiratory Rate 20 09/01/2018 8:00 PM EST Oxygen Saturation 97% 09/01/2018 8:00 PM EST Inhaled Oxygen Concentration - - Weight 80.3 kg (177 lb) 09/01/2018 8:00 PM EST Height 182.2 cm (5' 11.75 ) 04/02/2018 9:08 AM E DT Body Mass Index - - Plan of Treatment Health Maintenance Due Date Last Done Comments DTaP,Tdap,and Td Vaccines (7 - Td or Tdap) 01/21/2022 01/22/2012, 12/05/2005, 06/21/2002, Additional history exists Influenza Vaccines (#1) 2025 05/21/20 16, 03/31/2014, 05/28/2012 COVID-19 Vaccine ( season) 2025 HIB Vaccines Completed 01/25/2002, 07/2000, 02/23/2001, Additional history exists Hepatitis B Vaccines Completed 01/25/2002, 04/27/2001, 2000 Pneumococcal Vaccine Completed 12/27/2004, 04/27/2001, 02/23/2001, Additional history exists IPV Vaccines Completed 12/05/2005, 05/29, 02/23/2001, Additional history exists MMR Vaccines Completed 12/05/2005, 10/23/2001 Varicella Vaccines Completed 01/11/2009, 01/25/2002 HPV Vaccines Completed 12/20/2014, 10/2013, 03/17/2013 Meningococcal Vaccine Completed 04/02/2018, 012 Hepatitis A Vaccines Aged Out No long er eligible based on patient's age to complete this topic Men B Vaccine Aged Out No longer elig ible based on patient's age to complete this topic Insurance [facility]
--- OUTSIDE RECORDS SUMMARY | 2025-06-29 11:32 | XMS_ITS | Encounter Summary ---
Author Organization [facility] Address [address] [place] [address] Phone Care Team Providers Care Physical Therapy Teacher Name Role Phone Juaquin Hendrix MD Primary Care Provider [phone] Encounter Details Date Type Department Care Team (Late st Contact Info) Description 03/05/2017 Conversion Encounter [facility] - [address], [address] [place] [address] Juaquin Hendrix MD [address] [place] [id number] Social History Tobacco Use Types Packs/Day Years [...] on filedocumented in this encounter Care Teams Physical Therapy Teacher Relationship Specialty Start Date End Date Juaquin Hendrix MD [address] [place] [address] PCP - General 09/17/16 07/13/20 documented as of this encounter
--- OUTSIDE RECORDS SUMMARY | 2025-06-29 11:32 | XMS_ITS | Clinical Summary ---
Author Organization [facility] Address [facility] [address] [address] Phone Care Team Providers Care Formation Fracturing Operator Name Role Phone Unavailable Primary Care Provider Unavailabl e Allergies Active Allergy Reactions Criticality Noted Date Comments Amoxicillin Hives 07/03/2020 Penicillins 02/12/2021 Medications hydrocortisone 1 % cream Apply topically 2 (two) times a day. 42 g 2 2 Active Active Problems Problem Noted Date Diagnosed Date Poor concentration 09/05/2021 Assessment & Plan (10/31/2021 8:50 AM EDT): Improved since last visit. Patient notes a history of feeling more down/depressed in the fall and winter and notes struggles more with motivation/focus/concentration at these times. Currently feels mood and concentration are improved since weather has improved. -discussed that a medication like wellbutrin may be beneficial for him. Discussed could do a trial of starting this in early April and continuing through September for suspected SADD. -he agrees with this plan and will schedule an apt with Dr. Hernández in late March/early April. Assessment & Plan (09/05/2021 11:16 AM EST): Chronic with symptoms present since childhood but worse recently. Unclear if he was formally diagnosed with ADHD in childhood but feel this is likely. Discussed current symptoms could be related to ADHD but could also be symptom of undertreated mood disorder such as depression. -refer to Dr. Brandt for neuropsych evaluation -encouraged to keep to sleep schedule. Try using sun lamp w/in the first hour of waking. -plan to follow up once testing has been completed. Discussed if unable to get testing due to insurance reasons could consult with Chronic pain of right knee 11/27/2020 Assessment & Plan (11/27/2020 9:38 AM EDT): Chronic pain and locking/catching symptoms in the right knee. Minimal improvement with PT. Would like referral back to orthopedics -referral placed to [facility] External hemorrhoid 11/27/2020 Assessment & Plan (11/27/2020 9:39 AM EDT): New problem. Discussed common causes of external hemorrhoids, encouraged to avoid constipation. -trial of using hydrocortisone cream BID as needed for burning/itching. Can also use tucks pads as needed -follow up if any new/worsening symptoms Encounter for routine adult health examination with abnormal findings 09/28/2020 Assessment & Plan (10/31/2021 8:50 AM EDT): Labs: negative DM/cholesterol screen. Negative STD screening. Immunizations: Due for tdap in december 2021. Had covid-19 vaccinations already. Declines flu shot Would like dermatology referral for annual skin check. No concerning lesions at this time. Follow up annually for CPE and as needed Assessment & Plan (09/28/2020 1:40 PM EST): Labs: cbc/cmp/a1c/lipids ordered given family history. HIV/hepb/hepc and syphilis screen ordered given personal hx of STD. Unfortunately, still not able to perform asymptomatic screening for G&C due to lab shortage. Immunizations: utd. Due for tdap in 2021. Had flu had both covid-19 vaccinations already. Follow up annually for CPE and as needed Pilonidal cyst without infection 12/21/2019 Overview (09/28/2020): Last Assessment & Plan: Keep area clean with soap/warm water, warm soaks, and may apply topical bacitracin 2 times daily Call back if worsening or any sign of infection Consider surgical evaluation at [facility] if persistent Assessment & Plan (11/27/2020 9:37 AM EDT): Chronic. No evidence of infection. Discussed care measures including keeping the area clean/dry and that he should call if any signs of infection including purulent drainage, pain, redness and would place surgical consult Resolved Problems Problem Noted Date Diagnosed Date Resolved Date Scrotal swelling 11/27/2020 10/31/2021 Assessment & Plan (11/27/2020 9:40 AM EDT): No palpable mass or tenderness noted. Suspect this may represent hydrocele or varicocele. No symptoms of STI and no new partners. -will obtain U/S to evaluate further. Anxiety 05/29/2018 10/31/2021 Overview (09/28/2020): SCARED for 30 initial Last Assessment & Plan: Having significant social anxiety for a few [...] screening. F/u with me in 4 weeks. Assessment & Plan (09/28/2020 1:41 PM EST): Improved. Feels anxiety is currently situational and triggered specifically by ongoing issues with upstairs neighbors. Would prefer to avoid daily medication as he feels anxiety is well controlled at this time. -discussed several options for prn medications and risks associated with benzodiazepine use -will do trial of vistaril 25-50mg po daily prn acute anxiety -discussed following up if he does not find this effective or at any time if he has any worsening of his anxiety and he agrees with plan Assessment & Plan (08/09/2020 10:52 AM EST): Better with Escitalopram, but is not tolerating it. I will change him to sertraline. I encouraged him to cut down if not cut out marijuana as this may be exacerbating his anxiety. Assessment & Plan (07/03/2020 10:42 AM EST): Generally has 2 months of significant anxiety that is not remitting. He will likely benefit from an SSRI. Benefits risks and side effects were reviewed. We also discussed psychotherapy but he like to defer that at this time. It is possible that marijuana use is also playing a role and we will discuss that further at his next appointment. I will start him on escitalopram 5 mg daily for a week and increase to 10 mg daily and I will see him back in the office in about a month. If he has any trouble tolerating the medication, he knows he can let me know at any time so we can discuss making a change. Immunizations Immunization Administration Dates Next Due COVID-19 (Pre-05/19) Moderna Vaccine, mRNA, PF 10/25/2021,09/12/2020,09/12/2020,08/15,08/15/2020 DTaP 12/05/2005, 2,04/27/2001,02/23,2000 HPV,quadrivalent 03/31/2014,03/17/2013 HPV9 12/20/2014 Hepatitis B 04/27/2001,2000 Hepatitis B Adult 01/25/2002,01/25/2002 Hib,PRP-T 01/25/2002, 1,02/23/2001,12/26 INFLUENZA, SPLIT VIRUS, TRIV ALENT W/ PRESERVATIVE IM 05/28/2012 IPV 12/05/2005, 2,02/23/2001,12/26 Influenza Quadrivalent Prese rvative Free IM 05/21/2016,03/31/2014 Influenza, Unspecified Formulation 04/25/2020, MMR 12/05/2005,12/05/2005,10/23/2001 Meningococcal MCV4P 04/02/2018,01/22/2012 Pneumococcal conjugate, PCV 7 12/27/2004 ,04/27/2001,02/23/2001,12/26 Tdap 01/22/2012,01/22/2012 Varicella 01/11/2009,01/11/2009,01/25/2002 Family History Medical History Relation Comments Colon polyps Father Hyperlipidemia Father Hypertension Father Heart attack Maternal Grandfather Hyperlipidemia Maternal Grandfather Hyperlipidemia Maternal Grandmother Hypertension Maternal Grandmother Melanoma Maternal Grandmother Melanoma Mother Colon cancer Paternal Grandfather Heart attack Paternal Grandfather Relation Status Comments Father Alive Maternal Grandfather Maternal Grandmother Alive Mother Alive Paternal Grandfather Social History Tobacco Use Types Packs/Day Years Used Date Smoking Tobacco: Never Smokeless Tobacco: Current Chew Tobacco Cessation:Ready to Q uit: Not Asked; Counseling Given: Not Answered Comments:does vape and chew Alcohol Use Standard Drinks/Week Comments Yes 0 (1 standard drink = 0.6 oz pur e alcohol) friday or friday nights Child or Family Care Answer Date Record ed Do you have problems with on e of the following making it difficult for you to work, study, or receive health care? No 10/31/2021 Education Answer Date Recorded Are you interested in more education? Not on dayan e 11/12/2023 Are you concerned about learning? Not on file 11/12/2023 No 11/12/2023 No 11/12/2023 Food Answer Date Recorded Within the past 6 months we worried whether our food would run out before we got money to buy more. Sometimes True 022 Within the past 6 months the food we bought just didn't last and we didn't have enough money to get more. Sometimes True 12/2021 Residential Stability Answer Date Recor ded What is your housing situation today? I have eileen wood 10/31/2021 How many times have you moved in the past Fri? One time 10/31/2021 Paying for Meds Answer Date Recorded Do you have trouble paying for medicines? No 10/31/2021 Paying Utility Bills Answer Date Record ed Do you have trouble paying your heating or elect ricity bill? No 10/31/2021 Transportation Answer Date Recorded Has the lack of transportati on kept you from medical appointments or from getting medications? No 10/31/2021 Unemployment Answer Date Recorded Are you currently unemployed or working on a part-time or temporary basis, and looking for work? No 10/31/2021 Digital Access Answer Date Recorded No 12/21/2022 No 12/21/2022 Reliable internet access at home? Not on file 12/21/2022 Device with a working camera? Not on file Sex and Gender Information Value Date Recorded Sex Assigned at Not on file Legal Sex Male 1:29 PM EDT Gender Identity Not on file Sexual Orientation Not on file Occupation Industry Job Start Date Job End Date [employer] Not on file Not on f ile Not on file Student [employer] Not on file Not on file Not on file Last Filed Vital Signs Vital Sign Reading Time Taken Comments Blood Pressure 101/61 07/02/2022 8:59 AM EST Pulse 90 07/02/2022 8:59 AM EST Temperature 37.2 C (99 F) 07/02/2022 8:59 AM EST Respiratory Rate 20 07/02/2022 8:59 AM EST Oxygen Saturation 100% 07/02/2022 8:59 AM EST Inhaled Oxygen Concentration - - Weight 79.4 kg (175 lb) 07/02/2022 8:59 AM EST Height 182.9 cm (6') 07/02/2022 8:59 AM EST Body Mass Index 23.73 07/02/2022 8:59 AM EST Plan of Treatment Health Maintenance Due Date Last Done Comments SMOKING Hx and SMOKELESS TOBACCO SCREENING 2013 Adult Td,Tdap Booster 01/21/2022 01/22/2012, 012 DEPRESSION SCREENING 10/31/2022 10/31/2021 INFLUENZA VACCINE (#1) 2025 , 04/25/2020, 05/21/2016, Additional history exists COVID-19 VACCINE ( season) 2025 10/25/2021, 09/12/2020, 09/12/2020, Additional history exists HIB VACCINES Completed 01/25/2002, 07/2000, 02/23/2001, Additional history exists PNEUMOCOCCAL VACCINES (0-49 years) Aged Out 12/27/2004, 04/27/2001, 02/23/2001, Additional history exists No longer eligible based on patient's age to complete this topic HPV VACCINES Completed 12/20/2014, 10/2013, 03/17/2013 MENINGOCOCCAL VACCINES (ACWY) Completed 04/02/2018, 01/22/2012 HEPATITIS C SCREENING Completed 09/29/2020, 021 HIV ONE-TIME SCREENING (18-65 YEARS) Completed 09/29/2020 HEPATITIS A VACCINES Aged Out No long er eligible based on patient's age to complete this topic MENINGOCOCCAL VACCINES (B) Aged Out N o longer eligible based on patient's age to complete this topic Medical Devices Not on file Procedures Procedure Name Priority Date/Time Associated Diagnosis Comments HEPATITIS C ANTIBODY, QUALITATIVE Routine 09/29/2020 8:24 AM EST Encounter for routine adult health examination with abnormal findings from Last 3 Months or Most Recently Relevant to Health Maintenance Results * Hepatitis C antibody, qualitative (09/29/2020 8:24 AM EST) HCV NON-REACTIV E NON-REACTI VE [facility] Blood 09/29/2020 8:24 AM EST 09/29/2020 8:25 AM EST Josi Kearney PA LAB BLOOD BKR ORDERAB LES Final Result [facility] [address], [place] [id number] from Last 3 Months or Most Recently Relevant to Health Maintenance Insurance [employer] POS CIGNA O POS C[facility]NA HMO [facility] C[facility] POS [facility] POS [facility] Address: [facility] [id number] [place] [phone] Additional Source Comments The information contained in this document represents components of the legal health record. It is not the complete legal health record.[facility]
== END 2025-06-29 10:52 | disposition home or self-care (01) ==
PROVIDERS: PCP Internal Medicine; Visit Provider Internal Medicine
DX: Z23 Encounter for immunization (principal); Z00.00 Encounter for general adult medical examination without abnormal findings

== ENCOUNTER → 2025-06-29 10:06 | Outpatient (BNVA) | payer OTHER, SELFPAY | PROVIDERS: PCP Internal Medicine; Visit Provider Internal Medicine | DX: Z00.00 Encounter for general adult medical examination without abnormal findings (principal); Z28.21 Immunization not carried out because of patient refusal | CPT/HCPCS: 90471; 96127 ==